=== PATIENT | female | born 1980 | race Two or more races ===

== ENCOUNTER 2024-08-16 08:33 | Inpatient (IN) | payer MEDICAID, SELFPAY ==
[2024-08-16] VITALS (7 sets, daily range): BP systolic 113–139; BP diastolic 87–100; PULSE 82–107; RESP 16–100; TEMP 36.4–37; O2SAT 97–100; BMI 28.1; BMI 27.3
--- NOTE | 2024-08-16 | XR_ITS ---
MRI abdomen, without contrast. MRCP Date and time of exam: August 16, 2024 1630 hours Comparison March 08, 2023 INDICATIONS: Patient reports dark-colored stools with upper abdominal pain and nausea, heavy drinking daily for the past several years, CT abdomen pelvis today thickened edematous gallbladder wall Technique: Multiple axial and coronal images of the abdomen have been obtained with the Siemens 1.5T MRI scanner. Images obtained included T1 weighted transverse images, T2-weighted transverse images, T2-weighted transverse images fat-suppressed, T2 weighted haste fat suppressed transverse images, T1 weighted images, in and out of phase images, T2-weighted coronal images, breath hold, T2 weighted haze coronal images as well as T2 weighted coronal thick slab images, MRCP. Findings: Liver nodular in contour, no definite liver masses Fluid subcapsular lobe liver, measuring up to 7 mm in thickness lateral to the right lobe liver Prominent splenomegaly, 15 cm Portosystemic collateral vessels medial to the spleen No gallstones On this study no definite gallbladder wall edema or cholecystitis Normal common hepatic common bile duct Pancreas is not enlarged no peripancreatic edema, no dilated pancreatic duct No hydronephrosis Solid mass lower pole left kidney, 29 mm IMPRESSION: Cirrhosis Mild fluid subcapsular and below the right over the liver Prominent splenomegaly Portosystemic collateral vessels medial to the spleen Negative for cholecystitis Normal common hepatic common bile duct. Negative for pancreatitis Recommend MRI abdomen kidneys follow-up post intravenous contrast to confirm 29 mm solid mass lower pole left kidney
--- NOTE | 2024-08-16 09:24 | XR_ITS ---
Examination: CTA abdomen, with intravenous contrast. CTA pelvis, with intravenous contrast. 2-D sagittal and coronal reconstructions. 3-D reconstructions. Date and time of exam: August 16, 2024 1211 hours Comparison January 07, 2024 INDICATIONS: Rectal bleeding epigastric pain upper abdominal pain one week, history tumor removal left kidney 2022 CTDI vol (mgy) 12.4 DLP (MGycm) 568 Technique: Multiple CTA images, 2.0 mm slice thickness, obtained abdomen, pelvis, with the high-resolution 64 slice scanner. 100 cc Isovue-370 is administered intravenously. Sagittal and coronal 2-D reconstructions are obtained. 3-D reconstructions, angiographic images are obtained. 3-D postprocessing, including vascular maximum intensity projections. Low dose protocols were performed. One or more of the following dose reduction techniques were used; automated exposure control, adjustment of the mA and/or KV according to patient size, use of iterative reconstruction technique. Findings: Lenticular parenchymal disease in the right lower lobe again noted Mild enlargement cardiac contour Cirrhosis, liver markedly irregular in contour and replaced by multiple tiny low-density lesions Prominent splenomegaly Portosystemic collateral vessels medial to the spleen No pancreatic mass Gallbladder wall appears thickened and edematous Normal adrenal glands No renal or ureteral calculi, no hydronephrosis Fluid distended small bowel loops Normal appendix No diverticulitis No bowel obstruction No pelvic mass Bladder intact IMPRESSION: Acute acalculous cholecystitis, consider MRCP follow-up Cirrhosis, liver is replaced by multiple tiny low-density lesions, recommend MRI abdomen liver follow-up pre and postcontrast to exclude numerous hepatic lesions No abnormal contrast extravasation in the gastrointestinal tract Prominent splenomegaly Portosystemic collateral vessels medial to the spleen Normal appendix Small bowel ileus versus hepatic enteropathy
--- NOTE | 2024-08-16 09:24 | XR_ITS ---
Examination: Abdomen sonogram, Limited Date and time of exam: August 16, 2024 1031 hours INDICATIONS: Epigastric pain and rectal bleeding beginning 4 days ago Technique: Real-time alcocer scale transabdominal sonographic images of the upper abdomen obtained. Findings: Negative for gallstones Gallbladder wall is thickened 0.44 cm no edema Common bile duct 0.3 cm no stones Pancreatic head 2.8 cm Liver 15.4 cm nodular contour fatty infiltration no focal liver lesions Normal hepatopedal portal venous flow Patent IVC IMPRESSION: Negative for cholelithiasis Gallbladder wall is thickened, consider MRCP or HIDA scan follow-up to exclude cholecystitis Suspect primary hepatocellular disease
--- NOTE | 2024-08-16 09:28 | PD.EDABDPN ---
ED Abdominal Pain RME/HPI General Chief Complaint: Abdominal Pain Stated complaint: RECTAL BLEEDING Time seen by provider: 08/16/24 09:16 Arrival date/time: 08/16/24 08:33 RME / HPI RME / HPI narrative: This section includes all my notes and documentations, including HPI, PE, and ED course. Issac Mondragon MD HPI: 43-year-old female here concerned about GI bleeding. She reports several days of dark and maroon-colored stools. With upper abdominal pain and nausea. She reports heavy drinking daily for the past several years. Last drink several days ago. No fever or chills. No chest pain or shortness of breath. No other complaints. ROS: All negative except as documented in HPI. Physical Exam: General: Alert and oriented. Tremors noted. Appearance of malaise noted. Eyes: Conjunctivae and lids clear. EOMI. PERRL. ENT: No nasal congestion. Neck: Supple. No JVD. Heart: RRR. Lungs: No respiratory distress. Good air movement. No rhonchi, wheezing, rales. Chest: No tenderness. Abdomen: Soft with upper quadrant tenderness. Normal bowel sounds. No distension. No rebound or guarding. Back: No CVA tenderness. Legs: No clubbing, cyanosis, edema. Skin: Warm and dry. Neuro: Alert and oriented X 3. Cranial Nerves II-XII grossly intact. No peripheral motor deficits. I reviewed all diagnostic test results. My review of the GB ultrasound report is thickened gallbladder. My review of the CT report is cholecystitis and cirrhosis. Blood tests and urine tests remarkable for WBC 2.7, Hgb 6.8, Plt 58, K 3.2, Mg 1.3. At this point, diagnoses include: Acute GI bleeding, Severe anemia, Alcohol withdrawal, Hypokalemia, Hypomagnesemia, Cholecystitis, Cirrhosis of liver, Thrombocytopenia. Treatment here included IV fluid and thiamine and Ativan and KCl and MgSO4 2 gram IV and Zosyn and blood transfusion. No significant improvement noted subjectively and objectively. I discussed the case with our GI and our hospitalist. About the presentation and exam and diagnostics and treatments here. And need of further care in the hospital. Will accept the patient. Issac Mondragon MD Related Data Home Medications ?Medication ?Instructions ?Recorded ?Confirmed folic acid 1 mg tablet 1 mg PO BID 12/24/23 01/04/24 lisinopril 20 mg tablet 20 mg PO QDAY 12/24/23 01/04/24 thiamine HCl (vitamin B1) 100 mg 100 mg PO BID 12/24/23 01/04/24 tablet (Vitamin B-1) Previous Rx's ?Medication ?Instructions ?Recorded cyclobenzaprine 5 mg tablet 5 mg PO TID PRN Muscle Spasms #30 12/27/23 tabs ferrous gluconate 324 mg (38 mg 324 mg PO QDAY #30 tabs 12/27/23 iron) tablet lidocaine 5 % topical patch 1 patch top QDAY PRN LOCALIZED 12/27/23 PAIN #7 ea pantoprazole 40 mg tablet,delayed 40 mg PO QDAY #30 tabs 12/27/23 release (Protonix) propranolol 10 mg tablet 10 mg PO BID #60 tabs 12/27/23 Allergies Allergy/AdvReac Type Severity Reaction Status Date / Time amoxicillin Allergy Severe Hives Verified 01/10/24 20:01 Penicillins Allergy Severe Hives Verified 01/10/24 20:01 Course Quality Measures none Orders Category Date Time Status Admit to Inpatient Status Routine Admission 08/16/24 14:50 Active Patient Condition Routine Admission 08/16/24 14:50 Ordered Bleeding Precautions [facility] Care 08/16/24 15:22 Active COVID-19 Screening Questionnaire NOW Care 08/16/24 13:[address] Screening NOW Care 08/16/24 09:25 Active Decision to Admit X1 Care 08/16/24 13:20 Active MRI Screening NOW Care 08/16/24 14:59 Active Notify provider NEEDED Care 08/16/24 14:50 Active Post Transfusion H&H PRN Care 08/16/24 15:22 Active Saline [Insert IV] NOW Care 08/16/24 09:21 Active Sequential Compression Device QSHIFT Care 08/16/24 14:55 Active Transfuse,blood/blood products NOW Care 08/16/24 11:00 Active Consult to Gastroenterology Stat Cons 08/16/24 13:18 Ordered Diet Clear Liquid Diet 08/16/[address] angio abdomen pelvis Stat Exams 08/16/24 09:24 Completed MR MRCP Urgent Exams 08/16/24 Ordered US gall bladder Stat Exams 08/16/24 09:24 Completed Alcohol, Blood Medical Stat Lab 08/16/24 10:15 Completed Ammonia Urgent Lab 08/16/24 14:59 Ordered Amylase Stat Lab 08/16/24 10:15 Completed CBC AM DRAW Lab 08/17/24 05:00 Ordered CBC AM DRAW Lab 08/18/24 05:00 Ordered CBC AM DRAW Lab 08/19/24 05:00 Ordered CBC Stat Lab 08/16/24 10:15 Completed CMP [Comprehensive Metabolic Panel] Stat Lab 08/16/24 10:15 Completed Comprehensive Metabolic Panel AM DRAW Lab 08/17/24 05:00 Ordered Comprehensive Metabolic Panel AM DRAW Lab 08/18/24 05:00 Ordered Comprehensive Metabolic Panel AM DRAW Lab 08/19/24 05:00 Ordered Drug Screen,Urine Stat Lab 08/16/24 09:50 Completed HCG,Qualitative Serum Stat Lab 08/16/24 10:15 Completed Lipase Stat Lab 08/16/24 10:15 Completed Magnesium AM DRAW Lab 08/17/24 05:00 Ordered Magnesium AM DRAW Lab 08/18/24 05:00 Ordered Magnesium AM DRAW Lab 08/19/24 05:00 Ordered Magnesium Stat Lab 08/16/24 10:15 Completed PT [Prothrombin Time with INR] Stat Lab 08/16/24 10:15 Completed PTT [Partial Thromboplastin Time] Stat Lab 08/16/24 10:15 Completed Partial Thromboplastin Time AM DRAW Lab 08/17/24 05:00 Ordered Path Review Blood Smear Stat Lab 08/16/24 10:15 Completed Phosphorous AM DRAW Lab 08/17/24 05:00 Ordered Phosphorous AM DRAW Lab 08/18/24 05:00 Ordered Phosphorous AM DRAW Lab 08/19/24 05:00 Ordered Prothrombin Time with INR AM DRAW Lab 08/17/24 05:00 Ordered Red Blood Cells Stat Lab 08/16/24 10:15 Results Type and Screen Stat Lab 08/16/24 10:15 Results UA [Urinalysis] Stat Lab 08/16/24 09:50 Completed Acetaminophen Tab [Tylenol Tab] Med 08/16/24 14:49 Active 650 mg PO Q6H PRN CIPROFLOXACIN/D5w 400 MG IVPB [Cipro Ivpb] Med 08/16/24 15:30 Active 400 mg in 200 ml IV DAILY DiphenhydrAMINE INJ [Benadryl Inj] Med 08/16/24 11:59 Discontinued 25 mg IVP X1 ONE Famotidine Inj [Pepcid Inj] Med 08/16/24 09:23 Discontinued 20 mg IVP X1 ONE Folic Acid Med 08/16/24 15:00 Active 1 mg PO BID HYDROcodone*/APAP 5/325 [[place] 5/325] Med 08/16/24 14:55 Active 1 tab PO Q4HR PRN KCL 10% Liq UDC 15 ML Med 08/16/24 10:59 Discontinued 40 meq PO X1 ONE LORazepam [Ativan Inj] Med 08/16/24 15:00 Active 1 mg IV Q2HR PRN LORazepam [Ativan Inj] Med 08/16/24 15:00 Active 2 mg IV Q2HR PRN LORazepam [Ativan Inj] Med 08/16/24 09:22 Discontinued 2 mg IVP X1 ONE LORazepam [Ativan] Med 08/16/24 15:00 Active 0.5 mg PO Q4HR PRN LORazepam [Ativan] Med 08/16/24 15:00 Active 1 mg PO Q4HR PRN LORazepam [Ativan] Med 08/16/24 15:00 Active 2 mg PO Q4HR PRN Magnesium Sulfate 2 GM Ivpb [Magnesium Sulfate Ivpb] Med 08/16/24 10:59 Discontinued 2 gm in 50 ml IV X1 Magnesium Sulfate 4 GM Ivpb [Magnesium Sulfate Ivpb] Med 08/16/24 15:19 Active 4 gm in 50 ml IV X1 MethylPREDNISolone. [SoluMEDROL Inj] Med 08/16/24 11:59 Discontinued 40 mg IVP X1 ONE Morphine Inj Med 08/16/24 14:55 Active 2 mg IVP Q4HR PRN NA [place]RISTIAN[place]/NAHCO3/TERRY/PEG (Golytely) [Golytely] Med 08/16/24 14:55 Discontinued 4,000 ml PO X1 ONE Octreotide Acet Inj [SandoSTATIN Inj] Med 08/16/24 10:59 Discontinued 50 mcg IV X1 ONE Ondansetron Inj [Zofran Inj] Med 08/16/24 14:55 Active 4 mg IV Q6H PRN Ondansetron Inj [Zofran Inj] Med 08/16/24 09:22 Discontinued 4 mg IV X1 ONE Pantoprazole Inj [Protonix Inj] Med 08/16/24 22:00 Active 40 mg IVP Q12HR Pantoprazole Inj [Protonix Inj] Med 08/16/24 09:23 Discontinued 80 mg IV X1 ONE Piper/Tazo Inj [Zosyn Inj] 3.375 gm Med 08/16/24 13:21 Discontinued Sodium Chloride 0.9% (P) [Ns 0.9% (P)] 50 ml IV X1 Senna [Senokot] Med 08/16/24 14:55 Active 1 tab PO BID PRN Sodium Chloride 0.9% 1000 ml [Ns] 1,000 ml Med 08/16/24 09:26 Discontinued IV 999 mls/hr Sodium Chloride 0.9% [Ns] 100 ml Med 08/16/24 11:15 Active Octreotide Acet Inj [SandoSTATIN Inj] 1,000 mcg IV 50 mcg/hr Sodium Chloride 0.9% [Ns] 100 ml Med 08/17/24 07:15 Pending Octreotide Acet Inj [SandoSTATIN Inj] 1,000 mcg IV 50 mcg/hr Thiamine Inj [Vitamin B-1 Inj] Med 08/16/24 09:22 Discontinued 100 mg IVP X1 ONE Thiamine [Vitamin B-1] Med 08/16/24 15:00 Active 100 mg PO BID cefTRIAXone/D5w 1gm IV premix [Rocephin/D5w 1gm IV Med 08/17/24 21:00 Active premix] 50 ml IV HS cefTRIAXone/D5w 1gm IV premix [Rocephin/D5w 1gm IV Med 08/17/24 09:00 Discontinued premix] 50 ml IV QDAY metroNIDAZOLE/NS 500 MG IVPB [Flagyl 500 mg IV] Med 08/16/24 14:10 Discontinued 500 mg in 100 ml IV Q8HR metroNIDAZOLE/NS 500 MG IVPB [Flagyl 500 mg IV] Med 08/16/24 21:00 Active 500 mg in 100 ml IV Q8HR Code Status Routine Oth 08/16/24 14:49 Ordered Oxygen Delivery PRN RT 08/16/24 14:49 Active Vital Signs Vital signs: Vital Signs Temperature 98.6 F 08/16/24 08:59 Pulse Rate 107 H 08/16/24 08:59 Respiratory Rate 16 08/16/24 08:59 Blood Pressure 123/88 H 08/16/24 08:59 Pulse Oximetry (%) 100 08/16/24 08:59 Oxygen Delivery Method Room Air 08/16/24 08:59 Abdominal Pain MDM Patient data External records reviewed:: [facility] previous records Clinical information provided by:: patient Social determinants that could affect healthcare access:: alcohol use Patient has the following chronic illnesses:: Alcohol abuse and cirrhosis How is presenting disease/condition affected by chronic disease/condition?: exacerbated by Evaluation data The following diagnostics were reviewed and interpreted by me:: lab results and radiology exam(s) Lab and/or radiology exams considered but not ordered:: None Interpretation Summary: Acute GI bleeding, Severe anemia, Alcohol withdrawal, Hypokalemia, Hypomagnesemia, Cholecystitis, Cirrhosis of liver, Thrombocytopenia Medications / Prescriptions Medications or Prescriptions considered but not ordered:: None Medication administrations:: Medication Administration History Acetaminophen (Acetaminophen 325 Mg Tablet) 650 mg PO Q6H PRN PRN Reason: Fever >100.4 or pain 1-3 Stop: 09/15/24 14:48 Hydrocodone Bitart/Acetaminophen (Hydrocodone/Apap 5/325 Tablet) 1 tab PO Q4HR PRN PRN Reason: PAIN SCALE 4-10(Mod-Sev Stop: 08/21/24 14:54 Folic Acid (Folic Acid 1 Mg Tablet) 1 mg PO BID [place] Stop: 08/21/24 14:59 Octreotide Acetate 1,000 mcg/ (Sodium Chloride) 102 mls @ 5.1 mls/hr IV .Q20H [place]; Protocol Stop: 08/21/24 07:14 Octreotide Acetate 1,000 mcg/ (Sodium Chloride) 102 mls @ 5.1 mls/hr IV .Q20H ONE; Protocol Stop: 08/17/24 07:14 Last Admin: 08/16/24 11:43 Dose: 50 mcg/hr, 5.1 mls/hr Documented By: AM Metronidazole (Flagyl 500 Mg Iv) 500 mg in 100 mls @ 200 mls/hr IV Q8HR [place] Stop: 08/23/24 20:59 Ceftriaxone Sodium/Dextrose (Rocephin/D5w 1gm Iv Premix) 50 mls @ 100 mls/hr IV HS [place] Stop: 08/24/24 20:59 Ciprofloxacin/Dextrose (Cipro Ivpb) 400 mg in 200 mls @ 200 mls/hr IV DAILY [place] Stop: 08/23/24 15:29 Magnesium Sulfate (Magnesium Sulfate Ivpb) 4 gm in 50 mls @ 12.5 mls/hr IV X1 ONE Stop: 08/16/24 19:18 Lorazepam (Lorazepam 0.5 Mg Tablet) 0.5 mg PO Q4HR PRN PRN Reason: CIWA Score 2-6 Stop: 08/21/24 14:59 Lorazepam (Lorazepam 0.5 Mg Tablet) 1 mg PO Q4HR PRN PRN Reason: CIWA SCORE 7-11 Stop: 08/21/24 14:59 Lorazepam (Lorazepam 2 Mg/Ml Vial) 1 mg IV Q2HR PRN PRN Reason: CIWA SCORE 16-19 Stop: 08/21/24 14:59 Lorazepam (Lorazepam 2 Mg/Ml Vial) 2 mg IV Q2HR PRN PRN Reason: CIWA SCORE 20-25 Stop: 08/21/24 14:59 Lorazepam (Lorazepam 0.5 Mg Tablet) 2 mg PO Q4HR PRN PRN Reason: CIWA SCORE 12-15 Stop: 08/21/24 14:59 Morphine Sulfate (Morphine Sulf Inj 10 Mg/Ml Vial) 2 mg IVP Q4HR PRN PRN Reason: Breakthrough Pain Stop: 08/21/24 14:54 Ondansetron HCl (Ondansetron Inj 2 Mg/Ml Inj 2 Ml) 4 mg IV Q6H PRN; Protocol PRN Reason: NAUSEA OR VOMITING Stop: 09/15/24 14:54 Pantoprazole Sodium (Pantoprazole Inj 40 Mg Vial) 40 mg IVP Q12HR [facility] Stop: 09/15/24 21:59 Sennosides (Senna Tablet) 1 tab PO BID PRN; Protocol PRN Reason: CONSTIPATION Stop: 09/15/24 14:54 Thiamine HCl (Thiamine 100 Mg Tablet) 100 mg PO BID [facility] Stop: 08/21/24 14:59 Discontinued Medications Diphenhydramine HCl (Diphenhydramine Inj 50 Mg/Ml Vial) 25 mg IVP X1 ONE Stop: 08/16/24 12:00 Famotidine (Famotidine Inj 10 Mg/Ml Vial 2 Ml) 20 mg IVP X1 ONE Stop: 08/16/24 09:24 Last Admin: 08/16/24 09:57 Dose: 20 mg Documented By: AM Sodium Chloride (Ns) 1,000 mls @ 999 mls/hr IV .Q1H1M ONE Stop: 08/16/24 10:26 Last Admin: 08/16/24 09:49 Dose: 999 mls/hr Documented By: AM Magnesium Sulfate (Magnesium Sulfate Ivpb) 2 gm in 50 mls @ 25 mls/hr IV X1 ONE Stop: 08/16/24 12:58 Last Admin: 08/16/24 11:42 Dose: 25 mls/hr Documented By: AM Piperacillin Sod/Tazobactam (Sod 3.375 gm/ Sodium Chloride) 50 mls @ 100 mls/hr IV X1 ONE Stop: 08/16/24 13:50 Ceftriaxone Sodium/Dextrose (Rocephin/D5w 1gm Iv Premix) 50 mls @ 100 mls/hr IV QDAY [place] Stop: 08/24/24 08:59 Metronidazole (Flagyl 500 Mg Iv) 500 mg in 100 mls @ 200 mls/hr IV Q8HR [place] Stop: 08/23/24 14:09 Lorazepam (Lorazepam 2 Mg/Ml Vial) 2 mg IVP X1 ONE Stop: 08/16/24 09:23 Last Admin: 08/16/24 09:57 Dose: 2 mg Documented By: AM Methylprednisolone Sodium Succinate (Methylprednisolone Sod Succ 40 Mg Vial) 40 mg IVP X1 ONE Stop: 08/16/24 12:00 Octreotide Acetate (Octreotide Acet Inj 50 Mcg/Ml Vial) 50 mcg IV X1 ONE Stop: 08/16/24 11:00 Last Admin: 08/16/24 11:42 Dose: 50 mcg Documented By: AM Ondansetron HCl (Ondansetron Inj 2 Mg/Ml Inj 2 Ml) 4 mg IV X1 ONE; Protocol Stop: 08/16/24 09:23 Last Admin: 08/16/24 09:56 Dose: 4 mg Documented By: AM Pantoprazole Sodium (Pantoprazole Inj 40 Mg Vial) 80 mg IV X1 ONE Stop: 08/16/24 09:24 Last Admin: 08/16/24 09:55 Dose: 80 mg Documented By: AM Polyethylene Glycol/Electrolytes (Na [place]/Nahco3/Terry/Peg (Golytely) 4,000 Ml Btl) 4,000 ml PO X1 ONE Stop: 08/16/24 14:56 Potassium Chloride (Potassium Chloride 10% 20 Meq/15 Ml Udc) 40 meq PO X1 ONE Stop: 08/16/24 11:00 Last Admin: 08/16/24 11:40 Dose: 40 meq Documented By: AM Thiamine HCl (Thiamine Inj 100 Mg/Ml Vial 2 Ml) 100 mg IVP X1 ONE Stop: 08/16/24 09:23 Last Admin: 08/16/24 09:57 Dose: 100 mg Documented By: AM IV fluid and Ativan and thiamine and Zosyn and KCl and MgSO4 2 gram IV and blood transfusion Consultations Consultation(s) initiated? (list below): Yes Consultation #1 (Physician, Specialty, Details): GI (Dr. Mcdonald) Diagnosis Differential diagnosis abdominal pain: acute appendicitis, calculus of kidney, constipation, diverticulitis, gastroenteritis, pancreatitis and small bowel obstruction Most likely diagnosis given after review of the tests above:: Acute GI bleeding, Severe anemia, Alcohol withdrawal, Hypokalemia, Hypomagnesemia, Cholecystitis, Cirrhosis of liver, Thrombocytopenia Admission Indicated Admission indicated?: indicated Explain why admission is indicated or not indicated:: Acute GI bleeding, Severe anemia, Alcohol withdrawal, Hypokalemia, Hypomagnesemia, Cholecystitis, Cirrhosis of liver, Thrombocytopenia Admission Request Was there a request for admission?: Yes Admission Attestation Admission request attestation: Discussed case with Hospitalist service regarding admission. Discussed patients ED course, exam findings, labs, and radiology results. The Hospitalist [agrees,declines] to accept the patient for admission. Disposition Plan Disposition Plan: Admit Critical Care Time Critical Care Time Critical Care Time: Yes Total Critical Care Time (min.): 43 Attestation: Due to a high probability of clinically significant, life threatening deterioration, the patient required my highest level of preparedness to intervene emergently and I personally spent this critical care time directly and personally managing the patient. This critical care time included obtaining a history; examining the patient; ordering and review of studies; arranging urgent treatment with development of a management plan; evaluation of patient's response to treatment; frequent reassessment; and discussions with family and other providers. It was exclusive of separately billable procedures and treating other patients and teaching time. Issac Mondragon MD Discharge Plan Plan Patient Disposition: Admit Acute Care w/in Hospital Prescriptions/Referrals Prescriptions/Med Rec: No Action folic acid 1 mg Tablet 1 mg PO BID thiamine HCl (vitamin B1) [Vitamin B-1] 100 mg Tablet 100 mg PO BID lisinopril 20 mg Tablet 20 mg PO QDAY lidocaine 5 % Adhesive Patch,Medicated 1 patch top QDAY PRN (Reason: LOCALIZED PAIN) Qty: 7 0RF cyclobenzaprine 5 mg Tablet 5 mg PO TID PRN (Reason: Muscle Spasms) Qty: 30 0RF pantoprazole [Protonix] 40 mg tablet,delayed release (DR/EC) 40 mg PO QDAY Qty: 30 0RF ferrous gluconate 324 mg (38 mg iron) tablet 324 mg PO QDAY Qty: 30 0RF propranolol 10 mg tablet 10 mg PO BID Qty: 60 0RF Referrals: No Primary/Family,Physician [Primary Care Provider] - In 1 week Problem List Clinical Impression: Acute GI bleeding, Severe anemia, Alcohol withdrawal, Hypokalemia, Hypomagnesemia, Cholecystitis, Cirrhosis of liver, Thrombocytopenia Patient/Caregiver Discharge Instructions Print Language: Omani Stand Alone Forms: Christina Award Info., Patient Portal Info Letter
[2024-08-16] MEDS: SODIUM CHLORIDE 0.9% 1000 ML 1,000 ML 999 ML IV (09:49)
[2024-08-16] MEDS: PANTOPRAZOLE INJ 40 MG VIAL 80 MG IV (09:55)
[2024-08-16] MEDS: ONDANSETRON INJ 2 MG/ML INJ 2 ML 4 MG IV (09:56)
[2024-08-16] MEDS: FAMOTIDINE INJ 10 MG/ML VIAL 2 ML 20 MG IVP (09:57)
[2024-08-16] MEDS: THIAMINE INJ 100 MG/ML VIAL 2 ML IVP (09:57)
[2024-08-16] MEDS: LORazepam 2 MG/ML VIAL IVP (09:57)
[2024-08-16 10:14] LABS: Collection Type, Urine Clean Catch
[2024-08-16 10:29] LABS: Basophils % (Auto) 1 % (0-2.5); Eosinophils # (Auto) 0.1 Thou/mm3 (0.0-0.5); Eosinophils % (Auto) 2 % (0-10); Hematocrit 22.6 % (36.0-46.0); Immature Granulocytes % (Auto) 0 % (0-0); Immature Granulocytes Auto 0.01 Thou/mm3 (0.00-0.00); Lymphocytes # (Auto) 0.5 Thou/mm3 (1.0-4.8); Lymphocytes % (Auto) 19 % (10-50); Mean Corpuscular HGB Conc 30.1 g/dl (31.0-37.0); Mean Corpuscular Hemoglobin 20.9 pg (25.0-35.0); Mean Corpuscular Volume 70 fL (80-100); Monocytes # (Auto) 0.3 Thou/mm3 (0.0-0.8); Monocytes % (Auto) 13 % (0-12); Neutrophils # (Auto) 1.7 Thou/mm3 (1.8-7.7); Neutrophils % (Auto) 65 % (37-80); Nucleated Red Blood Cell % 0 /100 WBC (0); RDW Standard Deviation 48.5 fL (36.4-46.3); Red Blood Count 3.25 Miln/mm3 (4.00-5.20)
[2024-08-16 10:31] LABS: Amorphous Crystals,Urine Present (Absent); Bacteria,Urine Rare; Bilirubin,Urine Negative (Negative); Blood,Urine 3+ (Negative); Color,Urine Yellow (Lt Yel-Yel); Glucose, Urine Negative (Negative); Ketones,Urine Negative (Negative); Leukocyte Esterase,Urine Negative (Negative); Nitrite,Urine Negative (Negative); Protein,Urine 1+ (Neg - Trace); RBC,Urine 5 /hpf (0-3); Specific Gravity,Urine 1.023 (1.001-1.035); Squamous Epithelial Cell,Urine 27 /hpf (0-5); WBC,Urine 2 /hpf (0-5)
[2024-08-16 10:39] LABS: Clarity,Urine Hazy (Clear/Hazy)
[2024-08-16 10:40] LABS: INR 1.3 (0.9-1.3); Partial Thromboplastin Time 28.3 Seconds (22.0-36.0)
[2024-08-16 10:50] LABS: Alanine Aminotransferase 75 U/L (10-49); Albumin, Serum 3.8 gm/dL (3.5-5.0); Albumin/Globulin Ratio 1.4 (1.2-2.2); Alcohol, Blood Medical < 3.0 mg/dL (0-10.0); Alkaline Phosphatase 88 U/L (46-116); Amylase 90 U/L (30-118); Anion Gap 7 (7-16); Aspartate Amino Transferase 94 U/L (0-34); BUN/Creatinine Ratio 14 Ratio (12-20); Bilirubin,Total 1.1 mg/dL (0.3-1.2); Blood Urea Nitrogen 7 mg/dL (9-23); Calcium 8.1 mg/dL (8.3-10.6); Calcium (Corrected) 8.3 mg/dL (8.5-10.1); Carbon Dioxide 22.3 mMol/L (20.0-31.0); Chloride 108 mMol/L (98-107); Creatinine (Component) 0.5 mg/dL (0.6-1.3); Estimated Creatinine Clearance 144.8 mL/min (>60); Globulin 2.7 gm/dL (2.3-3.5); Glucose 92 mg/dL (74-106); Lipase 30 U/L (12-53); Magnesium 1.3 mg/dL (1.6-2.6); Osmolality,Calculated 271 (275-295); Potassium 3.2 mMol/L (3.4-5.1); Sodium 137 mMol/L (136-145); Total Protein 6.5 gm/dL (5.7-8.2); eGFR > 60 See Note
[2024-08-16 10:51] LABS: Amphetamine/Methamp Scrn,U Negative (Negative); Barbiturate Screen,Urine Negative (Negative); Benzodiazepines Screen,Urine Negative (Negative); Benzoylecgonine Screen, Ur Negative (Negative); Fentanyl Screen,Urine Negative (Negative); Opiate Screen,Urine Negative (Negative); THC Screen,Urine Positive (Negative)
[2024-08-16 10:56] LABS: Hemoglobin 6.8 g/dL (12.0-16.0); Platelet Count 58 Thou/mm3 (140-440); White Blood Count 2.7 Thou/mm3 (3.6-11.0)
[2024-08-16 10:57] LABS: HCG,Qualitative Serum Negative
[2024-08-16 11:19] LABS: Path Review Blood Smear Sent to Pathologist; Slide Review Platelets confirmed
--- NOTE | 2024-08-16 11:36 | PC.NURSE ---
Pt back from US
[2024-08-16] MEDS: POTASSIUM CHLORIDE 10% 20 MEQ/15 ML UDC 40 MEQ PO (11:40)
[2024-08-16] MEDS: OCTREOTIDE ACET INJ 50 mCg/ML VIAL IV (11:42)
[2024-08-16] MEDS: Magnesium Sulfate 2 GM Ivpb 2 GM/50 ML BAG IV (11:42)
[2024-08-16] MEDS: OCTREOTIDE ACET INJ 1,000 MCG in SODIUM CHLORIDE 0.9% 100 ML 5.1 MCG IV (11:43)
--- NOTE | 2024-08-16 12:04 | PC.NURSE ---
Pt off to ct
--- NOTE | 2024-08-16 13:41 | PC.CC ---
Patient is a 43 year-old female who presents to the hospital for rectal bleeding. Mary RUTLEDGE made [id number] contact with patient. ASW introduced self, role, and reason for visit. Patient appeared alert and oriented to self, location, and situation. Patient was pleasant and engaged in initial assessment. Patient confirmed information on her demographics and reports she lives with her significant other. Patient reports should something happen her next of kin is Amador Carlosz . Per patient, prior to being admitted she was able to ambulate independently and complete her own ADLs. Patient receives primary care with [facility] in [place], [place] for prescription medications the patient uses [facility] on [address]. Upon discharge patient plans on returning back home. Social servies to remain available for any discharge needs.
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
[2024-08-16] MEDS: PIPER/TAZO INJ 3.375 GM in SODIUM CHLORIDE 0.9% (P) 50 ML IV (15:32)
[2024-08-16] MEDS: FOLIC ACID 1 MG TABLET PO ×2 (15:32→21:31)
[2024-08-16] MEDS: THIAMINE 100 MG TABLET PO ×2 (15:32→21:32)
[2024-08-16 15:45] LABS: Ammonia 12 uMol/L (11-32)
--- NOTE | 2024-08-16 16:05 | PC.NURSE ---
Dr. Soto called because blood bank is still working on getting pt's blood and go lytely was ordered. Per Dr. Soto, Start patient on go lytely. Pt given go lytely but does not want to start fluid until she is in a room.
--- NOTE | 2024-08-16 16:09 | PC.NURSE ---
Blood bank contacted . Blood bank states blood may need to be obtained from another facility due to pt having 3 antibodies and a cold antigen. Dr. Brittany rendon.
[2024-08-16] MEDS: NA SU/NAHCO3/KC/PEG (Golytely) 4,000 ML BTL 4000 ML PO (16:26)
--- NOTE | 2024-08-16 16:26 | PC.NURSE ---
Pt waiting to go to room to starte celine
[2024-08-16] MEDS: LORazepam 0.5 MG TABLET PO (18:00)
[2024-08-16] MEDS: Magnesium Sulfate 4 GM Ivpb 4 GM/50 ML BAG IV (18:00)
[2024-08-16] MEDS: CALCIUM CARBONATE 600 MG TABLET PO (18:00)
[2024-08-16 18:37] LABS: Hematocrit 25.2 % (36.0-46.0)
[2024-08-16 18:40] LABS: Hemoglobin 7.3 g/dL (12.0-16.0)
--- NOTE | 2024-08-16 20:22 | PD.IMCONS ---
HPI Data of Consult Requesting Physician: Maynor Villar DO Primary Care Provider: Physician No Primary/Family Consult Narrative Reason for consult: GI hemorrhage History of present illness: 43 years of female consulted by the ER physician for 4-day history of dark maroon-colored stools Patient does have a known history of alcohol induced liver disease with cirrhosis thrombocytopenia Admitting hemoglobin hematocrit 6.8 and 22.6 with a platelet count of 58,000 and a pro time INR 1.3 CT abdomen pelvis showed acute acalculous cholecystitis cirrhosis of the liver and portosystemic collaterals MRCP MRI of the abdomen showed nodular liver but no real masses and normal CBD I did evaluate the patient on 12/24/2023 With a GI bleed where on 12/25/2023 she underwent upper endoscopy which showed 1+ esophageal varices and gastritis On 12/26/2023 colonoscopy showed 1+ internal hemorrhoids otherwise normal colonoscopy to cecum Patient does have a history of essential hypertension and partial left nephrectomy in 2022 for renal cell carcinoma of the left kidney at [facility] cc:: cc: Maynor Villar DO Review of Systems Review of Systems Systems Reviewed: All systems reviewed, normal except as documented Past Medical History Surgical History OTHER SURGICAL HX: As in the history of present illness Meds Home Medications and Allergies Home Medications ?Medication ?Instructions ?Recorded ?Confirmed ?Type No Known Home Medications 08/16/24 08/16/24 History Allergies Allergy/AdvReac Type Severity Reaction Status Date / Time amoxicillin Allergy Severe Hives Verified 01/10/24 20:01 Penicillins Allergy Severe Hives Verified 01/10/24 20:01 Exam Vital Signs Temp Pulse Resp BP Pulse Ox O2 Del Method 98.2 F 94 16 131/100 H 99 Room Air 08/16/24 17:47 08/16/24 17:47 08/16/24 17:47 08/16/24 17:47 08/16/24 17:47 08/16/24 17:47 Constitutional Comments: Chronically ill-appearing Routine Respiratory Exam Comments: Normal to auscultation Routine Abdominal Exam Comments: Positive bowel sounds Results Labs 08/16/24 18:00 08/16/24 10:15 Labs: Short CBC 08/16/24 08/16/24 Range/Units 10:15 18:00 WBC 2.7 L (3.6-11.0) Thou/mm3 Hgb 6.8 L* 7.3 L (12.0-16.0) g/dL Hct 22.6 L 25.2 L (36.0-46.0) % Plt Count 58 L (140-440) Thou/mm3 BMP 08/16/24 10:15 Sodium 137 Potassium 3.2 L Chloride 108 H Carbon Dioxide 22.3 BUN 7 L Creatinine 0.5 L Glucose 92 Calcium 8.1 L Liver Function 08/16/24 Range/Units 10:15 Total Bilirubin 1.1 (0.3-1.2) mg/dL AST 94 H (0-34) U/L ALT 75 H (10-49) U/L Alkaline Phosphatase 88 (46-116) U/L Albumin 3.8 (3.5-5.0) gm/dL Urine 08/16/24 Range/Units 09:50 Urine Color Yellow (Lt Yel-Yel) Urine Clarity Hazy (Clear/Hazy) Urine pH 8.0 H (5.0-7.0) Ur Specific [place] 1.023 (1.001-1.035) Urine Protein 1+ A (Neg - Trace) Urine Glucose (UA) Negative (Negative) Assessment and Plan Additional Assessment & Plan Additional Plan: # Gastrointestinal hemorrhage in the setting of cirrhotic liver disease due to alcohol with thrombocytopenia and coagulopathy Most likely upper GI bleed secondary to either hypertensive portal gastropathy with mucosal oozing of blood or esophageal variceal bleeding Plan Octreotide infusion at 50 mcg/h IV Protonix Serial CBC Consent obtained for fiberoptic esophagogastroduodenoscopy with possible therapeutic intervention possible biopsy under intravenous moderate sedation scheduled for tomorrow thank you once again for the opportunity to participate in the care of this patient
[2024-08-16] MEDS: PANTOPRAZOLE INJ 40 MG VIAL IVP (21:34)
[2024-08-16] MEDS: LORazepam 0.5 MG TABLET 1 MG PO (22:04)
[2024-08-17] VITALS (18 sets, daily range): BP systolic 102–148; BP diastolic 79–102; PULSE 70–94; RESP 12–97; TEMP 35.6–36.7; O2SAT 94–99
[2024-08-17] MEDS: LORazepam 0.5 MG TABLET PO (05:09)
[2024-08-17 06:00] LABS: Basophils % (Auto) 1 % (0-2.5); Eosinophils # (Auto) 0.1 Thou/mm3 (0.0-0.5); Eosinophils % (Auto) 3 % (0-10); Hematocrit 22.9 % (36.0-46.0); Immature Granulocytes % (Auto) 1 % (0-0); Immature Granulocytes Auto 0.02 Thou/mm3 (0.00-0.00); Lymphocytes # (Auto) 0.6 Thou/mm3 (1.0-4.8); Lymphocytes % (Auto) 21 % (10-50); Mean Corpuscular HGB Conc 29.7 g/dl (31.0-37.0); Mean Corpuscular Hemoglobin 20.8 pg (25.0-35.0); Mean Corpuscular Volume 70 fL (80-100); Monocytes # (Auto) 0.3 Thou/mm3 (0.0-0.8); Monocytes % (Auto) 13 % (0-12); Neutrophils # (Auto) 1.6 Thou/mm3 (1.8-7.7); Neutrophils % (Auto) 61 % (37-80); Nucleated Red Blood Cell % 0 /100 WBC (0); Red Blood Count 3.27 Miln/mm3 (4.00-5.20)
[2024-08-17 06:03] LABS: Platelet Count 67 Thou/mm3 (140-440)
[2024-08-17 06:04] LABS: White Blood Count 2.6 Thou/mm3 (3.6-11.0)
[2024-08-17 06:05] LABS: Hemoglobin 6.8 g/dL (12.0-16.0)
[2024-08-17 06:06] LABS: Slide Review Platelets confirmed
[2024-08-17 06:18] LABS: INR 1.3 (0.9-1.3); Partial Thromboplastin Time 28.3 Seconds (22.0-36.0); Prothrombin Time 13.8 Seconds (9.0-12.2)
[2024-08-17 06:28] LABS: Alanine Aminotransferase 127 U/L (10-49); Albumin, Serum 3.9 gm/dL (3.5-5.0); Albumin/Globulin Ratio 1.3 (1.2-2.2); Alkaline Phosphatase 85 U/L (46-116); Anion Gap 7 (7-16); Aspartate Amino Transferase 214 U/L (0-34); BUN/Creatinine Ratio 8 Ratio (12-20); Bilirubin,Total 1.1 mg/dL (0.3-1.2); Blood Urea Nitrogen < 5 mg/dL (9-23); Calcium 8.4 mg/dL (8.3-10.6); Calcium (Corrected) 8.5 mg/dL (8.5-10.1); Carbon Dioxide 26.1 mMol/L (20.0-31.0); Chloride 102 mMol/L (98-107); Creatinine (Component) 0.6 mg/dL (0.6-1.3); Estimated Creatinine Clearance 119.1 mL/min (>60); Globulin 2.9 gm/dL (2.3-3.5); Glucose 108 mg/dL (74-106); Osmolality,Calculated 268 (275-295); Phosphorous 2.8 mg/dL (2.4-5.1); Potassium 4.1 mMol/L (3.4-5.1); Sodium 135 mMol/L (136-145); Total Protein 6.8 gm/dL (5.7-8.2); eGFR > 60 See Note
[2024-08-17] MEDS: DiphenhydrAMINE INJ 50 MG/ML VIAL 25 MG IVP (06:39)
[2024-08-17] MEDS: FOLIC ACID 1 MG TABLET PO ×2 (08:28→19:45)
[2024-08-17] MEDS: THIAMINE 100 MG TABLET PO ×2 (08:28→19:45)
--- NOTE | 2024-08-17 08:28 | XR_ITS ---
Examination: MRI abdomen , with intravenous contrast. Exam date and time: August 17, 2024 1230 hours INDICATIONS: Patient reports dark-colored stools with upper abdominal pain and nausea heavy drinking in the past several years, noncontrast MRI abdomen August 16, 2024 29 mm solid mass lower pole left kidney Technique: Multiple axial, sagittal and coronal images of the abdomen have been obtained with the Siemens high-resolution 1.5 Padmini MRI scanner. Images obtained included T2 weighted fat suppressed sagittal sections, TR 3500, TE 46, T2 weighted coronal fat suppressed images, TR 3050, TE 84, T2-weighted transverse fat suppressed images, TR 30-60, TE 63, proton density transverse images, TR 4720, TE 46, and T1 weighted coronal images, TR 560, TE 13. Axial, sagittal and coronal images are obtained post intravenous injection 19 cc gadolinium. Findings: The liver on the postcontrast images demonstrates very abnormal heterogeneous uptake, irregular contour, cirrhosis pattern Splenomegaly Contrast in the gallbladder No pancreatic mass Solid mass is confirmed lower pole left kidney, 27 x 26 mm IMPRESSION: Very abnormal heterogeneous enhancement involving the cirrhotic liver, clinical correlation advised Solid mass is confirmed lower pole left kidney 27 x 26 mm
[2024-08-17] MEDS: CALCIUM CARBONATE 600 MG TABLET PO (08:29)
[2024-08-17] MEDS: PANTOPRAZOLE INJ 40 MG VIAL IVP ×2 (08:29→19:45)
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
[2024-08-17] MEDS: LORazepam 0.5 MG TABLET 1 MG PO ×2 (09:20→19:45)
[2024-08-17] MEDS: HYDROcodone/APAP 5/325 TABLET 1 TAB PO ×3 (09:20→20:04)
--- NOTE | 2024-08-17 09:26 | PC.NURSE ---
Clarified quantity of PRBCs to infuse, Per Dr Soto, infuse one unit and check H/H
--- NOTE | 2024-08-17 09:44 | PC.SS ---
Patient Michelle Davila is a 43 Year old female admitted for GI Bleed for Investigation. SS met wit patient at bedside to complete initial assessment and discuss discharge plan. Patient reports she lives at home with her life partner, Amador Bender who she reports is her surrogate decision maker [phone]. She reports she does not utilize any source of DME to assist with ambulation. Patient is able to complete all ADL's independently. Choice of pharmacy is [facility]. PCP is Richy Moss. At time of discharge patient will return home. Discharge Plan: home Next of Kin: life partner, Amador Bender
[2024-08-17] MEDS: OCTREOTIDE ACET INJ 1,000 MCG in SODIUM CHLORIDE 0.9% 100 ML 5.1 MCG IV (11:07)
[2024-08-17 12:44] LABS: Hematocrit 30.6 % (36.0-46.0); Hemoglobin 9.1 g/dL (12.0-16.0)
[2024-08-17] MEDS: LORazepam 0.5 MG TABLET 2 MG PO (13:26)
--- NOTE | 2024-08-17 17:42 | PC.NURSE ---
Received call from Ingrid from endoscopy, told to hold off on ativan as patient will be having procedure soon
--- NOTE | 2024-08-17 17:56 | PC.NURSE ---
patient to endo via paul, visibly upset. she explained that it had been a long day of uncertainty and waiting for the procedure.
--- NOTE | 2024-08-17 18:32 | SUR.PHASEI ---
pt arrived to PACU via gurney drowsy but arouses to verbal commands, breathing unlabored, VS stable, report from Christine TAYLOR
--- NOTE | 2024-08-17 19:05 | SUR.PHASEI ---
pt awake, alert, able to follow commands, breathing unlabored, VS stable, report called to Ayla TAYLOR, pt transferred to room.
--- NOTE | 2024-08-17 20:02 | PC.NURSE ---
called pharmacy regarding patient's ceftriaxone dose, if there is a reaction that may happen with the patient being allergic to amoxicillin and penicillins. Monitor patient closely when administering medication.
[2024-08-17] MEDS: cefTRIAXone/D5w 1gm IV premix 50 ML IV (20:06)
[2024-08-17] MEDS: NA SU/NAHCO3/KC/PEG (Golytely) 4,000 ML BTL 4000 ML PO (20:14)
[2024-08-18] VITALS (23 sets, daily range): BP systolic 103–140; BP diastolic 72–108; PULSE 62–88; RESP 8–97; TEMP 35.9–36.7; O2SAT 92–100; BMI 27.2
[2024-08-18] MEDS: LORazepam 0.5 MG TABLET 1 MG PO ×4 (00:29→19:45)
[2024-08-18] MEDS: HYDROcodone/APAP 5/325 TABLET 1 TAB PO ×5 (00:29→21:59)
[2024-08-18 05:53] LABS: Basophils % (Auto) 1 % (0-2.5); Eosinophils % (Auto) 1 % (0-10); Hematocrit 29.8 % (36.0-46.0); Hemoglobin 8.9 g/dL (12.0-16.0); Immature Granulocytes % (Auto) 1 % (0-0); Immature Granulocytes Auto 0.02 Thou/mm3 (0.00-0.00); Lymphocytes # (Auto) 0.7 Thou/mm3 (1.0-4.8); Lymphocytes % (Auto) 19 % (10-50); Mean Corpuscular HGB Conc 29.9 g/dl (31.0-37.0); Mean Corpuscular Hemoglobin 21.7 pg (25.0-35.0); Mean Corpuscular Volume 73 fL (80-100); Monocytes # (Auto) 0.5 Thou/mm3 (0.0-0.8); Monocytes % (Auto) 13 % (0-12); Neutrophils # (Auto) 2.4 Thou/mm3 (1.8-7.7); Neutrophils % (Auto) 67 % (37-80); Nucleated Red Blood Cell % 0 /100 WBC (0); Platelet Count 100 Thou/mm3 (140-440); Red Blood Count 4.11 Miln/mm3 (4.00-5.20); White Blood Count 3.6 Thou/mm3 (3.6-11.0)
[2024-08-18 06:29] LABS: Alanine Aminotransferase 125 U/L (10-49); Alkaline Phosphatase 89 U/L (46-116); Anion Gap 5 (7-16); Aspartate Amino Transferase 151 U/L (0-34); BUN/Creatinine Ratio 10 Ratio (12-20); Bilirubin,Total 1.2 mg/dL (0.3-1.2); Blood Urea Nitrogen 6 mg/dL (9-23); Carbon Dioxide 27.7 mMol/L (20.0-31.0); Chloride 100 mMol/L (98-107); Creatinine (Component) 0.6 mg/dL (0.6-1.3); Estimated Creatinine Clearance 119.1 mL/min (>60); Glucose 104 mg/dL (74-106); Osmolality,Calculated 263 (275-295); Phosphorous 2.6 mg/dL (2.4-5.1); Potassium 3.2 mMol/L (3.4-5.1); Sodium 133 mMol/L (136-145); Total Protein 7.9 gm/dL (5.7-8.2); eGFR > 60 See Note
[2024-08-18 06:39] LABS: Albumin, Serum 4.5 gm/dL (3.5-5.0); Albumin/Globulin Ratio 1.3 (1.2-2.2); Globulin 3.4 gm/dL (2.3-3.5)
[2024-08-18] MEDS: OCTREOTIDE ACET INJ 1,000 MCG in SODIUM CHLORIDE 0.9% 100 ML 5.1 MCG IV (07:21)
[2024-08-18] MEDS: THIAMINE 100 MG TABLET PO ×2 (09:33→20:23)
[2024-08-18] MEDS: CALCIUM CARBONATE 600 MG TABLET PO (09:33)
[2024-08-18] MEDS: FOLIC ACID 1 MG TABLET PO ×2 (09:33→20:23)
[2024-08-18] MEDS: POTASSIUM CHLORIDE 20 mEq TABCR 40 MEQ PO (09:36)
[2024-08-18] MEDS: PANTOPRAZOLE INJ 40 MG VIAL IVP ×2 (09:37→20:22)
--- NOTE | 2024-08-18 10:26 | ESCONSULT_ITS ---
HPI Data of Consult Consult date: 08/18/24 Requesting Physician: Mayonr Villar DO Primary Care Provider: Physician No Primary/Family Consult Narrative Reason for consult: History of renal cell CA History of present illness: Patient is a 43-year-old lady seen at the cancer center 2 years ago receiving Venofer infusions iron deficiency anemia when it was also noted that patient had left kidney grade 1 renal cell CA. Patient was referred to [facility], with records indicating that she was noncompliant but states that she had it resected earlier this year. On admission however MRI of the abdomen 08/17/2024 shows solid mass lower pole of the left kidney 27 x 26 mm which is about the same size as tumor noted on left kidney MRI of 03/08/2023. Admitted with GI hemorrhage thought to be related to alcohol induced liver disease with cirrhosis and thrombocytopenia. Hemoglobin 6.8 platelets 58,000. Upper endoscopy performed by Dr. Mcdonald revealed grade 1 esophageal varices lower third of esophagus with gastritis. After 1 unit packed cells octreotide hemoglobin has improved to 8.9 this a.m. AST ALT considerably elevated with bilirubin in normal range. CT scan abdomen pelvis 08/16/2024 acute acalculous cholecystitis cirrhosis prominent splenomegaly small bowel ileus versus hepatic enteropathy. But is now referred for oncological consultation. cc:: cc: Maynor Villar DO Past Medical History Surgical History OTHER SURGICAL HX: Reportedly had partial nephrectomy for left renal tumor at [facility] earlier this year. 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 History of bleeding with internal hemorrhoids status post banding. Hypertension. Meds Home Medications and Allergies Home Medications ?Medication ?Instructions ?Recorded ?Confirmed ?Type No Known Home Medications 08/16/24 08/16/24 History Allergies Allergy/AdvReac Type Severity Reaction Status Date / Time amoxicillin Allergy Severe Hives Verified 08/17/24 18:43 Penicillins Allergy Severe Hives Verified 08/17/24 18:43 Exam Vital Signs Temp Pulse Resp BP Pulse Ox O2 Del Method O2 Flow Rate 96.9 F 62 18 104/75 99 Room Air 3 08/18/24 08:00 08/18/24 08:34 08/18/24 08:34 08/18/24 08:00 08/18/24 08:00 08/18/24 08:00 08/17/24 18:20 Narrative Exam Appearing comfortable answers questions appropriately Results Labs 08/18/24 05:19 08/18/24 05:19 Labs: Short CBC 08/17/24 08/18/24 Range/Units 12:00 05:19 WBC 3.6 (3.6-11.0) Thou/mm3 Hgb 9.1 L D 8.9 L (12.0-16.0) g/dL Hct 30.6 L 29.8 L (36.0-46.0) % Plt Count 100 L D (140-440) Thou/mm3 BMP 08/18/24 05:19 Sodium 133 L Potassium 3.2 L D Chloride 100 Carbon Dioxide 27.7 BUN 6 L Creatinine 0.6 Glucose 104 Calcium 9.0 Liver Function 08/18/24 Range/Units 05:19 Total Bilirubin 1.2 (0.3-1.2) mg/dL AST 151 H (0-34) U/L ALT 125 H (10-49) U/L Alkaline Phosphatase 89 (46-116) U/L Albumin 4.5 D (3.5-5.0) gm/dL Assessment and Plan Additional Assessment & Plan Additional Plan: 1. Admitted with GI hemorrhage related to cirrhotic alcohol liver disease with thrombocytopenia and anemia. Improved with octreotide and PRBC transfusion. 2. Endoscopy reveals esophageal varices grade 1 lower third of the esophagus along with gastritis. 3. Noted to have stage I grade 1 renal cell CA left kidney 2 years ago, reportedly had resection earlier this year at [facility] according to patient. 4. Still prominent left renal mass noted slightly larger than imaging studies of a year ago. 5. Told patient to have follow-up at [facility] and will attempt to get records from [facility].,
[2024-08-18] MEDS: LORazepam 2 MG/ML VIAL 1 MG IV (14:00)
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
--- NOTE | 2024-08-18 18:34 | SUR.PHASEI ---
1834: pt received from [place] via [employer]. received report from CLAUDIA Munson. pt sleeping at this time. no s/s of pain or discomfort. no s/s of resp. distress or discomfort.
--- NOTE | 2024-08-18 18:50 | SUR.PHASEI ---
1850: pt awake and alert. able to pass gas, per patient abdominal discomfort was relieved.
--- NOTE | 2024-08-18 19:03 | SUR.PHASEI ---
1902: report given to CLAUDIA Aguirre
--- NOTE | 2024-08-18 19:06 | SUR.PHASEI ---
1906: pt transferred back to room 378. pt alert and oriented. no s/s of pain or discomfort. no s/s of resp. distress or discomfort.
--- NOTE | 2024-08-18 19:15 | PC.NURSE ---
Patient back to room via gurney.
[2024-08-18] MEDS: cefTRIAXone/D5w 1gm IV premix 50 ML IV (20:23)
[2024-08-19] VITALS (7 sets, daily range): BP systolic 106–144; BP diastolic 70–97; PULSE 67–90; RESP 16–18; TEMP 36.1–36.4; O2SAT 96–98
[2024-08-19] MEDS: OCTREOTIDE ACET INJ 1,000 MCG in SODIUM CHLORIDE 0.9% 100 ML 5.1 MCG IV (04:29)
[2024-08-19 06:19] LABS: Basophils % (Auto) 0 % (0-2.5); Eosinophils # (Auto) 0.1 Thou/mm3 (0.0-0.5); Eosinophils % (Auto) 2 % (0-10); Hematocrit 27.6 % (36.0-46.0); Hemoglobin 8.1 g/dL (12.0-16.0); Immature Granulocytes % (Auto) 0 % (0-0); Immature Granulocytes Auto 0.01 Thou/mm3 (0.00-0.00); Lymphocytes # (Auto) 0.6 Thou/mm3 (1.0-4.8); Lymphocytes % (Auto) 21 % (10-50); Mean Corpuscular HGB Conc 29.3 g/dl (31.0-37.0); Mean Corpuscular Hemoglobin 21.7 pg (25.0-35.0); Mean Corpuscular Volume 74 fL (80-100); Monocytes # (Auto) 0.5 Thou/mm3 (0.0-0.8); Monocytes % (Auto) 19 % (0-12); Neutrophils # (Auto) 1.6 Thou/mm3 (1.8-7.7); Neutrophils % (Auto) 57 % (37-80); Nucleated Red Blood Cell % 0 /100 WBC (0); Platelet Count 99 Thou/mm3 (140-440); RDW Standard Deviation 53.7 fL (36.4-46.3); Red Blood Count 3.74 Miln/mm3 (4.00-5.20)
[2024-08-19 06:20] LABS: White Blood Count 2.7 Thou/mm3 (3.6-11.0)
[2024-08-19 06:45] LABS: Alanine Aminotransferase 99 U/L (10-49); Albumin, Serum 3.7 gm/dL (3.5-5.0); Albumin/Globulin Ratio 1.3 (1.2-2.2); Alkaline Phosphatase 73 U/L (46-116); Anion Gap 3 (7-16); Aspartate Amino Transferase 101 U/L (0-34); BUN/Creatinine Ratio 11 Ratio (12-20); Blood Urea Nitrogen 8 mg/dL (9-23); Calcium 8.4 mg/dL (8.3-10.6); Calcium (Corrected) 8.6 mg/dL (8.5-10.1); Carbon Dioxide 24.8 mMol/L (20.0-31.0); Chloride 107 mMol/L (98-107); Creatinine (Component) 0.7 mg/dL (0.6-1.3); Estimated Creatinine Clearance 102.1 mL/min (>60); Globulin 2.9 gm/dL (2.3-3.5); Glucose 87 mg/dL (74-106); Magnesium 1.6 mg/dL (1.6-2.6); Osmolality,Calculated 267 (275-295); Potassium 4.4 mMol/L (3.4-5.1); Sodium 135 mMol/L (136-145); Total Protein 6.6 gm/dL (5.7-8.2); eGFR > 60 See Note
[2024-08-19] MEDS: HYDROcodone/APAP 5/325 TABLET 1 TAB PO ×2 (07:37→11:45)
[2024-08-19] MEDS: LORazepam 0.5 MG TABLET PO ×2 (07:37→11:46)
[2024-08-19] MEDS: PANTOPRAZOLE INJ 40 MG VIAL IVP (08:28)
[2024-08-19] MEDS: THIAMINE 100 MG TABLET PO (08:28)
[2024-08-19] MEDS: CALCIUM CARBONATE 600 MG TABLET PO (08:28)
[2024-08-19] MEDS: FOLIC ACID 1 MG TABLET PO (08:28)
[2024-08-19] MEDS: Magnesium Sulfate 4 GM Ivpb 4 GM/50 ML BAG IV (09:17)
--- NOTE | 2024-08-19 11:42 | ESDS_ITS ---
<Statement entered by Vianney Rao DO - 08/20/24 07:31> I, Vianney Rao DO, attest that I was physically present for the colon portions of the service and evaluated the patient with the resident and I reviewed and discussed the case with the resident and agree with the resident's findings and plans of care as documented above Planned Discharge Date 08/19/24 DS: Providers Provider Date of admission: 08/16/24 14:50 Primary care physician: Physician No Primary/Family Admitting Provider: Maynor Villar DO Attending Provider on Admission: Maynor Villar DO Consults: 08/16/24 13:18 Consult to Gastroenterology Stat Comment: GI bleed Consulting Provider: Vinayak Mcdonald 08/18/24 09:48 Consult to Oncology Routine Comment: Consulting Provider: Tyrone Mondragon Attending Provider on DC: Vianney Rao DO Discharging Provider: Colin Sarkar DS: Diagnosis Problem List Completed Was Problem List Reviewed/Reconciled?: Yes Hospital Course Hospital Course Hospital course: Patient is a 43-year-old female with a past medical history significant of decompensated alcoholic cirrhosis with esophageal varices and history of lower GI bleed due to bleeding internal hemorrhoids s/p banding, sciatica, history of left kidney tumor s/p ablation January 2023 at [facility], essential hypertension presented with chief complaint of blood in his stool for the past 4 days. She seen at the cancer center 2 years ago receiving Venofer infusions for iron deficiency anemia, history of left kidney grade 1 RCC post ablation and [facility] per records showed noncompliant to the center. Patient was admitted for GI bleed workup. GI specialist was consulted and patient underwent EGD showing grade 1 esophageal varices lower third esophagus with gastritis. She received 1 unit PRBC during hospital course and was started on octreotide drip which was given for 2 days per GI specialist not needed to continue for total 5 days. Colonoscopy only showed hemorrhoids. Patient was also found to have solid mass lower pole of left kidney 27 x 26 mm which is about the same size as tumor noted in the left kidney MRI 03/08/2023. CT abdomen showed acalculous cholecystitis cirrhosis prominence versus small bowel ileus versus hepatic enteropathy. Oncologist was consulted and per recommendations she was advised to follow-up with oncologist Dr. Mondragon as outpatient after getting referral from primary care physician after follow-up within a week. Patient was seen and examined at the bedside today. Her hemoglobin was stable at 8.1. She was medically stable to be discharged and GI gave clearance. Patient was discharged to home. Problem list: # Acute blood loss anemia # Esophageal varices, grade 1 with gastritis per EGD # Hemorrhoids per colonoscopy # Acalculous cholecystitis less likely # Decompensated liver cirrhosis alcohol induced with ascites esophageal varices, splenomegaly, thrombocytopenia and coagulopathy # Alcohol use disorder # Possible suspected RCC left kidney post ablation at [facility] # Essential hypertension # Electrolyte disturbance, resolved # Leukopenia # Thrombocytopenia # Elevated transaminases Discharge instructions: Take all home medication as prescribed Continue taking Protonix 40 mg once a day for 2 weeks Advised to completely stop drinking alcohol due to esophageal varices seen on EGD Follow-up with PCP as outpatient within a week [phone] at [facility] Follow-up with oncologist, Dr. Mondragon to evaluate left renal mass within a week after scheduling appointment at [phone] In case of emergency, call 911 or come back to the ED Patient was seen and discussed with attending physician, Dr. Jalen Asher MD, PGY 2 Time Spent with Patient Time attestation: Total time spent providing and/or coordinating discharge services: Exam Vital Signs Temp Pulse Resp BP Pulse Ox O2 Del Method O2 Flow Rate 96.9 F 74 16 144/97 H 97 Room Air 3 08/19/24 07:56 08/19/24 08:00 08/19/24 07:56 08/19/24 07:56 08/19/24 07:56 08/19/24 07:56 08/18/24 18:25 Narrative Exam Constitutional Alert, oriented x 3 and tearful. Young female HEENT Vision grossly intact. Patent nares. Trachea midline Respiratory Chest normal on inspection and clear auscultation bilaterally Cardiovascular S1 and S2 audible, RRR. No murmurs carotid bruit. No gross JVD. Abdominal Obese, tense and tender to palpation in epigastrium. No right upper quadrant tenderness, negative for asterixis, BS + Genitourinary No bladder tenderness, no flank pain. Normal to palpation Musculoskeletal Extremities tone within normal limits. Trace LE edema. Neurological CN II - XII grossly intact. Extremity motor and sensation grossly intact. Skin Warm, dry and intact. No apparent lesions. Psychiatric Patient is tearful. Discharge Plan Plan Patient Disposition: HOME (Self Care) Care Plan Goals: Take all home medication as prescribed Continue taking Protonix 40 mg once a day for 2 weeks Advised to completely stop drinking alcohol due to esophageal varices seen on EGD Follow-up with PCP as outpatient within a week [phone] at [facility] Follow-up with oncologist, Dr. Mondragon to evaluate left renal mass within a week after scheduling appointment at [phone] In case of emergency, call 911 or come back to the ED Prescriptions/Referrals Prescriptions/Med Rec: New thiamine mononitrate (vit B1) 100 mg Tablet 100 mg PO BID 14 Days Qty: 28 0RF folic acid 1 mg Tablet 1 mg PO BID 14 Days Qty: 28 0RF pantoprazole 40 mg tablet,delayed release (DR/EC) 40 mg PO QDAY Qty: 14 0RF Referrals: No Primary/Family,Physician [Primary Care Provider] - Kwame Asher MD [Resident] - Patient/Caregiver Discharge Instructions Print Language: Lithuanian Stand Alone Forms: Christina Award Info., Patient Portal Info Letter Discharge Order Discharge Orders: Discharge (Routine); Ordered 08/19/24 Ordered By: Kwame Asher Quality Discharge Quality Measures VTE prophylaxis (SCDs)
--- NOTE | 2024-08-19 19:41 | PD.IMPROG ---
Documentation for date of: 08/19/24 Subjective Subjective Interval history: Late entry for the note Case discussed with internal medicine team Okay to discharge patient home after band ligation of the internal hemorrhoids No need for GI follow-up Patient can be followed by the primary care physician Exam Vital Signs Temp Pulse Resp BP Pulse Ox O2 Del Method O2 Flow Rate 96.9 F 88 18 121/86 H 97 Room Air 3 08/19/24 12:00 08/19/24 12:00 08/19/24 12:00 08/19/24 12:00 08/19/24 12:00 08/19/24 12:00 08/18/24 18:25 Objective Labs 08/19/24 05:55 08/19/24 05:55 Labs: Laboratory Results - last 24 hr 08/16/24 08/19/24 10:15 05:55 WBC 2.7 L RBC 3.74 L Hgb 8.1 L Hct 27.6 L MCV 74 L MCH 21.7 L MCHC 29.3 L RDW Std Deviation 53.7 H Plt Count 99 L Neut % (Auto) 57 Lymph % (Auto) 21 [place] % (Auto) 19 H Eos % (Auto) 2 Baso % (Auto) 0 Neut # (Auto) 1.6 L Lymph # (Auto) 0.6 L [place] # (Auto) 0.5 Eos # (Auto) 0.1 Baso # (Auto) 0.0 Immature Gran # (Auto) 0.01 H Absolute Nucleated RBC 0.00 Immature Gran % 0 Nucleated RBC % 0 Sodium 135 L Potassium 4.4 D Chloride 107 Carbon Dioxide 24.8 Anion Gap 3 L BUN 8 L Creatinine 0.7 Estim Creat Clear Calc 102.1 eGFR > 60 BUN/Creatinine Ratio 11 L Glucose 87 Calculated Osmolality 267 L Calcium 8.4 Corrected Calcium 8.6 Phosphorus 3.0 Magnesium 1.6 Total Bilirubin 1.0 AST 101 H ALT 99 H Alkaline Phosphatase 73 Total Protein 6.6 Albumin 3.7 D Globulin 2.9 Albumin/Globulin Ratio 1.3 Crossmatch See Detail Impressions Impression: # Hematochezia status post band ligation of the internal hemorrhoids Plan As under HPI Assessment & Plan A&P Narrative 1. Admitted with GI hemorrhage related to cirrhotic alcohol liver disease with thrombocytopenia and anemia. Improved with octreotide and PRBC transfusion. 2. Endoscopy reveals esophageal varices grade 1 lower third of the esophagus along with gastritis. 3. Noted to have stage I grade 1 renal cell CA left kidney 2 years ago, reportedly had resection earlier this year at [facility] according to patient. 4. Still prominent left renal mass noted slightly larger than imaging studies of a year ago. 5. Told patient to have follow-up at [facility] and will attempt to get records from [facility]., Time Spent With Patient Time: Total time spent is greater than 50% in coordination of care (as documented) at patient's floor/unit and/or counseling patient:
== END 2024-08-19 13:19 | disposition home or self-care (01) | DRG 226 ==
LOC: SERX 15:25 → SERHOLD 15:36 → S3SX 17:16
PROVIDERS: Specialist; Admitting Provider Student in an Organized Health Care Education/Training Program; Emergency Provider Emergency Medicine; Visit Provider Student in an Organized Health Care Education/Training Program
PROC: 0DJ08ZZ Inspection of Upper Intestinal Tract, Via Natural or Artificial Opening Endoscopic (ICD-10-PCS; CPT 43239; principal; 2024-08-17 16:00)
PROC: 0DJD8ZZ Inspection of Lower Intestinal Tract, Via Natural or Artificial Opening Endoscopic (ICD-10-PCS; CPT 45378; principal; 2024-08-18 17:30)
DX: K64.8 Other hemorrhoids (principal); K81.0 Acute cholecystitis; D62 Acute posthemorrhagic anemia; E87.6 Hypokalemia; E83.42 Hypomagnesemia; K70.31 Alcoholic cirrhosis of liver with ascites; I10 Essential (primary) hypertension; E83.51 Hypocalcemia; K29.70 Gastritis, unspecified, without bleeding; D72.819 Decreased white blood cell count, unspecified; D69.59 Other secondary thrombocytopenia; Y90.0 Blood alcohol level of less than 20 mg/100 ml; N28.89 Other specified disorders of kidney and ureter; D68.9 Coagulation defect, unspecified; M54.30 Sciatica, unspecified side; R16.1 Splenomegaly, not elsewhere classified; I85.10 Secondary esophageal varices without bleeding; F10.139 Alcohol abuse with withdrawal, unspecified; Z85.528 Personal history of other malignant neoplasm of kidney; Z91.199 Patient's noncompliance with other medical treatment and regimen due to unspecified reason; T46.4X6A Underdosing of angiotensin-converting-enzyme inhibitors, initial encounter; Z91.128 Patient's intentional underdosing of medication regimen for other reason; Z87.19 Personal history of other diseases of the digestive system
CPT/HCPCS: 36415; 74174; 74182; 76705; 80053; 80307; 80320; 81001; 82140; 82150; 83690; 83735; 84100; 84703; 85014; 85018; 85025; 85610; 85730; 86850; 86900; 86901; 86921; 86922; 93225; 96374; 96375; 99291; A4217; A4649; A9579; J0696; J1200; J2060; J2175; J2250; J2354; J2405; J2470; J2543; J2919; J3010; J3411; J3475; J3490; J7030; J7050; P9016; Q9967; S8037; 74181; A9270; G0480

== ENCOUNTER 2024-08-28 13:00 | Outpatient (RCR) | payer MEDICAID, SELFPAY ==
--- NOTE | 2024-08-10 10:40 | PT.OIERPT ---
PT OP Initial Eval Patient Information Outpatient Physical Therapy Treatment Date: 08/10/24 Visit Reasons: Lumbago sciatica left side Medical Diagnosis: M54.42 Treatment Dx #1: Back Pain Start of Care: 08/10/24 Smoking Status Smoking Status: Current some day smoker (yes) Cessation Counseling Provided: DONNA was advised that quitting smoking is the single most important factor to protect the health of themselves and their family. Discussed the benefits of quitting smoking with patient. Encouraged patient to quit smoking and provided Cessation assistance materials and resources. Tobacco Use: Cigarette Years smoked: 10 Are you interested in quitting?: No Would you like additional Smoking Cessation Counseling?: No Initial Assessment Subjective: Pt is a 43 y/o female reports of chronic back pain with worsening left LE numbness in the past year. Per provider's note Pt has severe L4-L5 DDD and moderate to severe L5-S1 DDD. No recent MRI thus far. Pt has limitation with sitting, standing, chores, self care, cooking, cleaning, and performing recreational activities. Objective: L/S AROM: all motions are 50 % towards end range with pain in all plane Hip PROM: all motions are WFL Hip MMTs: grossly 3/5 Special Test (+) slump (+) left SLR Assessment: Pt demonstrate back pain with mobility deficits consistent with discogenic involvement leading to difficulty with ADLs. Pt will attempt physical therapy if pain persist Pt will be refer back to provider for further consultation. 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
--- NOTE | 2024-08-14 11:48 | PT.ODAYNRPT ---
PT Outpatient Daily Note OP Daily Note Outpatient Physical Therapy Treatment Date: 08/14/24 Visit Reasons: Lumbago sciatica left side Subjective: Pt's back is hurting and very sensitive. Objective: Please see flow chart for list of ther ex performed Assessment: guarded with all exercises due to pain. supine heat helped with patient tolerating exercises Plan: Continue with PT Length of Time (minutes) of Treatment: 30 Minutes Procedure Charges Therapeutic Exercise 30 minutes: Yes
--- NOTE | 2024-08-28 13:28 | PT.ODAYNRPT ---
PT Outpatient Daily Note OP Daily Note Outpatient Physical Therapy Treatment Date: 08/28/24 Visit Reasons: Lumbago sciatica left side Subjective: Pt's back is same and continues to hurt. No change in symptoms or pain after last session. Objective: Please see flow chart for list of ther ex performed Assessment: no change in pain and very guarded with all exercises. Pt encourage to complete instructed reps Plan: Continue with PT Length of Time (minutes) of Treatment: 30 Minutes Procedure Charges Therapeutic Exercise 30 minutes: Yes
== END 2024-09-05 23:59 | disposition home or self-care (01) ==
LOC: CPTX 13:00
PROVIDERS: PCP Nurse Practitioner; Referring Provider Nurse Practitioner; Visit Provider Nurse Practitioner
DX: M54.42 Lumbago with sciatica, left side (principal)
CPT/HCPCS: 97110; 97162

== ENCOUNTER 2024-09-15 10:38 | Outpatient (AMB) | payer MEDICAID, SELFPAY ==
[2024-09-15 10:30] VITALS: BP 153/107; PULSE 99; RESP 18; TEMP 36.8; O2SAT 98; BMI 27.6
--- NOTE | 2024-09-15 10:30 | PD.RESCLINIC ---
Vital Signs 09/15/24 10:30 Height 1.63 m Height Method Stated Weight 73.085 kg Weight Measurement Method Standing Scale BMI 27.6 BP 153/107 H Blood Pressure Source Automatic Cuff Blood Pressure Location Left Upper Arm Position Sitting Respiration 18 Pulse 99 Pulse Source Monitor Temp 98.2 F Temp Source Oral Pulse Oximetry (%) 98 Oxygen Delivery Method Room Air Allergies/Meds Allergies & Medications Allergies amoxicillin Allergy (Severe, Verified 09/15/24 11:29) Hives Penicillins Allergy (Severe, Verified 09/15/24 11:29) Hives Medication Reconciliation pantoprazole 40 mg tablet,delayed release 40 mg PO QDAY #14 tabs 08/19/24 [Rx Confirmed 09/15/24] MA Intake Visit Data Collection New Patient or Established: Established Patient (seen at [facility] within 3 years) Seen by Clinical Staff ONLY (RN/MA): No Pain Present Currently: Yes Pain Location: Back Pain scale:: 4 Pain Scale Used: Corrigan-Calderon/Numerical Shirt Hemmer Required: No PCP or OBGYN visit in last 3 months: No Hx Now: No Do You Feel Safe at Home: Yes Authorities Contacted: N/A Smoking Status Smoking Status: Light (< 1 pack/day) Cessation Counseling Provided: DONNA was advised that quitting smoking is the single most important factor to protect the health of themselves and their family. Discussed the benefits of quitting smoking with patient. Encouraged patient to quit smoking and provided Cessation assistance materials and resources. Tobacco Use: Cigarette Years smoked: 0 Are you interested in quitting?: No Immunization / Flu Flu Vaccine in the Last 12 Months: No Flu Vaccine Exclusion Criteria: No Exclusion Criteria Past Medical History Past Medical History NEUROLOGIC: Negative Neurological Disorders or Seizures CARDIAC: Positive Hypertension; Negative Cardiac Disorders, Hypercholesterolemia or Congestive Heart Failure RESPIRATORY: Negative Chronic Obstructive Pulmonary Disease (COPD), Asthma or Sleep Apnea GASTROINTESTINAL: Positive Gastrointestinal Disorders, Cirrhosis and Gastrointestinal Bleed GENITOURINARY: Negative Genitourinary Disorders or Renal Disease REPRODUCTIVE: Negative Pelvic Inflammatory Disease ENDOCRINE: Negative Endocrine Disorders, Diabetes Mellitus Type 1 or Diabetes Mellitus Type 2 HEMATOLOGIC: Positive Blood Disorders and Anemia; Negative Sickle Cell Disease PSYCHO/SOCIAL: Positive Anxiety OTHER HISTORY: Positive Falls, Blood Transfusions, Chicken Pox and Cancer; Negative Autoimmune Disease, Blood Transfusion Reaction or Anesthesia Reactions Family History FAMILY HISTORY: Positive Family Gastrointestinal Problems Social History SMOKING STATUS: Smoking status: Light (< 1 pack/day) SECOND HAND EXPOSURE: second hand exposure: No ALCOHOL: Alcohol Intake: Current ALCOHOL FREQUENCY: Alcohol Intake Frequency: 0-2 Drinks per Day HOUSING: Housing: House LIVES WITH: Lives With: Significant Other Patient Portal Questionairjacqueline Social History Living Situation History Housing: House Housing Other:: pt lives with boyfriend Tobacco History Smoking Status: Light (< 1 pack/day) Second Hand Smoke Exposure: No Alcohol History Alcohol Intake: Current Alcohol Intake Frequency: 0-2 Drinks per Day Substance Use History Substance Use: Marijuana Domestic Abuse History Do You Feel Safe at Home: Yes Review of Systems Report any current symptoms Only answer those that you have currently: Past Medical History Past Medical History Have you ever been diagnosed with any of the following: Neurological Problems Seizures: No Cardiology Problems Hypercholesterolemia: No Congestive Heart Failure: No Hypertension: Yes Respiratory Problems Chronic Obstructive Pulmonary Disease (COPD): No Asthma: No Sleep Apnea: No Stomache/Intestinal Problems Cirrhosis: Yes Gastrointestinal Bleed: Yes Genital/Urinary Problems Renal Disease: No Reproductive Problems Pelvic Inflammatory Disease: No Endocrine Problems Diabetes Mellitus Type 1: No Diabetes Mellitus Type 2: No Blood Problems Anemia: Yes Sickle Cell Disease: No Psychologic Problems Anxiety: Yes Other Problems Autoimmune Disease: No Falls: Yes Blood Transfusions: Yes Blood Transfusion Reaction: No Anesthesia Reactions: No Chicken Pox: Yes Cancer: Yes History of Present Illness HPI Narrative The patient is a 43-year-old female with a past medical history of alcoholic cirrhosis, grade 1 esophageal varices, history of GI bleed, history of renal cell carcinoma status post ablation January 2023 at [facility], hypertension, came for a follow-up visit following discharge from the hospital a few weeks ago. The patient has a history of medical noncompliance, I counseled her extensively but she remained adamant that she will not take any prescribed medications. Patient reported not taking any medications prescribed on the previous discharge from hospital, as well as stating that she does not stay compliant with any of the medications that her outpatient providers from [facility] have given her. The patient was most concerned about her back pain and was going to physical therapy but so far 3 sessions have not worked for her. She was teary-eyed that she used to be a runner but cannot even walk around the house without back pain. She has a history of alcoholism, and quit following previous hospital admission, I offered help with alcoholism and addiction but she refused. The patient is also concerned about a new mass in her kidney, she reported that she had cancer of the kidney and had ablation procedure done at tertiary care center, but the cancer has returned and wanted more information about it as well as requires a referral to [facility] to see Dr. Mondragon radiation oncologist. Chart review shows MRI of the abdomen 08/17/2024 shows solid mass lower pole of the left kidney 27 x 26 mm which is about the same size as tumor noted on left kidney MRI of 03/08/2023. Review of Systems Review of Systems Systems Reviewed: All systems reviewed, normal except as documented Objective/Exam Narrative Physical exam: General: AOx3, cooperative Skin: Intact, no cyanosis or edema noted. HEENT: Atraumatic/normocephalic, GINGER, neck supple Heart: RRR, S1 and S2 without clicks or murmurs Lungs: Clear on auscultation bilaterally, no difficulty breathing Abdomen: Soft, nontender. Bowel sounds present . Vascular: Peripheral pulses palpable Neuro: No focal neurological deficits noted. Assessment & Plan Diagnosis / Problem List (1) Alcoholic cirrhosis of liver: Status: Acute Qualifiers: Ascites presence: unspecified Qualified Code(s): K70.30 - Alcoholic cirrhosis of liver without ascites Assessment & Plan: Decompensated cirrhosis given the presence of ascites and esophageal varices, grade 1 on previous EGD. Likely alcohol induced as patient was a heavy drinker, quit only few weeks ago. I counseled patient extensively regarding medications including spironolactone and or lactulose or beta-lorna. But the patient is adamant she does not want any medications for any of her diagnosis. I asked patient for her understanding of cirrhosis and educated her, she did appreciate that and said no one had told her how bad her liver was. I asked patient regarding her concern regarding not taking medications, answering concerns but was not able to make any progress, for now, I will respect patient wishes, and restart that conversation on the next visit. Plan: - Will continue following up with the next visit (2) Severe anemia: Status: Acute Assessment & Plan: History of GI bleed likely leading to anemia as well as Cirrhosis may also be causing leukopenia anemia and thrombocytopenia. Plan: ? Continue follow-up (3) GI bleed: Status: Acute Assessment & Plan: History of GI bleed, she has varices, noted grade 1 esophageal varices on previous EGD, has history of variceal banding. Nonselective beta-lorna therapy was ordered but patient refused, Protonix was offered but patient refused. Plan: ? Continue follow-up (4) Renal mass: Status: Acute Assessment & Plan: The patient has a history of renal mass, biopsy-proven renal cell carcinoma, from [facility], history of IR ablation. The patient is also concerned about a new mass in her kidney, she reported that she had cancer of the kidney and had ablation procedure done at tertiary care center, but the cancer has returned and wanted more information about it as well as requires a referral to [facility] to see Dr. Mondragon radiation oncologist. Chart review shows MRI of the abdomen 08/17/2024 shows solid mass lower pole of the left kidney 27 x 26 mm which is about the same size as tumor noted on left kidney MRI of 03/08/2023. Plan: ? Referral to radiation oncologist Dr. Mondragon is placed. Orders: Referrals Oncology N28.89 - Other specified disorders of kidney and ureter Office Procedures [facility] Level of Care Nursing/Assessment Patient Status: Established Patient Nursing Assessment/Reassessment: Medication Reconciliation, Update PMH in EMR and Vital Signs Coordination of Care: Complex Care and Chronic Disease 1-5, Consent,records obtained, informed consent, Education Simp Pt/Fam, 1 Ins Authorization, Ref for ancillary service and Staff clarify orders Established Patient Charge Established Patient Point Assignment: 120 Established Patient Point Charge: Level 4 (120-155)
== END 2024-09-15 11:15 | disposition home or self-care (01) ==
LOC: HODAHC 10:38
PROVIDERS: Supervising Provider Internal Medicine; Visit Provider Student in an Organized Health Care Education/Training Program
DX: K70.30 Alcoholic cirrhosis of liver without ascites (principal); D64.9 Anemia, unspecified; I85.00 Esophageal varices without bleeding; C64.9 Malignant neoplasm of unspecified kidney, except renal pelvis
CPT/HCPCS: 99214; G0463

== ENCOUNTER 2024-09-19 10:30 | Outpatient (RCR) | payer MEDICAID, SELFPAY ==
--- NOTE | 2024-09-12 10:44 | PT.ODAYNRPT ---
PT Outpatient Daily Note OP Daily Note Outpatient Physical Therapy Treatment Date: 09/19/24 Visit Reasons: low back sciatica Subjective: Pt reports pain continues to be present and consistent. Objective: Please see flow sheet for ther ex list. Assessment: Pt presents in clinic with poor activity tolerance due to high pain response. Modified exercises to pt tolerance. Plan: Continue with POC. Procedure Charges Therapeutic Exercise 30 minutes: Yes
--- NOTE | 2024-09-14 14:10 | PT.ODAYNRPT ---
PT Outpatient Daily Note OP Daily Note Outpatient Physical Therapy Treatment Date: 09/14/24 Visit Reasons: low back sciatica Subjective: Pt c/o moderate LBP and pain on L side glute and posterior thigh. Objective: Please see flow sheet for ther ex list. Assessment: Performed STM resulting in decrease c/o pain. Plan: Continue with POC. Length of Time (minutes) of Treatment: 30 Minutes Procedure Charges Therapeutic Exercise 30 minutes: Yes
--- NOTE | 2024-09-19 11:37 | PT.ODS1RPT ---
PT OP Progress/Discharge Note Date of Service: 09/19/24 Progress Note/DC Note Progress Note/Discharge Note: DC Note Patient Information Visit Reasons: low back sciatica Medical Diagnosis: M54.42 Treatment Dx #1: Back Pain Service Discharge Date: 09/19/24 Status Subjective: Pt's back pain continues to be persistent and same since starting physical therapy. Pt still has intermittent numbness and tingling down the legs. Due to pain Pt has limitation with all ADLs. Pt will like to stop physical therapy and follow up with provider. Objective: L/S AROM: all motions are WFL Hip PROM: all motions are WFL Hip MMTs: grossly 3+/5 Special Test (+) slump (+) SLR Assessment: Pt continues to exhibit pain and numbness fown the LEs leading to difficulty with ADLs. Pt will no longer benefit from physical therapy due to plateau towards goals. Recommend L/S MRI to help rule in/out nature of pain. Pt was instructed on HEP last session and educated to continue exercises to maintain overall mobility. Pt performed all exercises safely, thank you for your referrals. Plan: D/C home with HEP and follow up with MD VELÁSQUEZ Recommend L/S MRI Procedure Charges Therapeutic Exercise 30 minutes: Yes
== END 2024-10-06 23:59 | disposition home or self-care (01) ==
LOC: CPTX 10:30
PROVIDERS: PCP Nurse Practitioner; Referring Provider Nurse Practitioner; Visit Provider Nurse Practitioner
DX: M54.42 Lumbago with sciatica, left side (principal)
CPT/HCPCS: 97110

== ENCOUNTER 2024-12-13 08:56 | Outpatient (RCR) | payer MEDICAID, SELFPAY ==
--- NOTE | 2024-12-14 02:37 | CTCCONSULT_ITS ---
Patient: DONNA DAVILA : 1980 MR#: [id number] Page 4 of 5 CONSULTATION NOTE DATE OF CONSULTATION: 12/13/2024 NAME: DONNA DAVILA ACCOUNT: [id number] : 1980 AGE: 44 REFERRING PHYSICIAN: Arnel Mora MD PRIMARY PHYSICIAN: Arnel Mora MD REASON FOR VISIT: Establishing care for renal cell cancer End-stage liver disease ONCOLOGY HISTORY: DIAGNOSIS: Iron deficiency anemia, unspecified [ICD10] D50.9 DATE OF DIAGNOSIS: 06/18/2022 STAGE/TNM: Kidney left lower posterior mass suspicious for renal cell cancer clear-cell type Ciaran nuclear grade 1 TREATMENT HISTORY: Care?Plan Start?Date Cycle Day Intent VENOfer?200mg?IV?wkly?for?10?weeks 04/06/2022 1 70 Palliative HISTORY OF PRESENT ILLNESS: 44-year-old female is here to follow-up with recurrence of renal mass. Patient is a chronic alcohol user and have underlying cirrhosis as well as esophageal varices. Patient frequently cries during this visit. Patient was seen in [place] October [place], 2021 patient was seen at [facility] in [place], secondary to abdominal pain. Patient states, she experienced abdominal pain and bloody stools for about 6 months prior to seeking medical attention.she had CT of the abdomen which showed cirrhosis of the liver with abdominal ascites, splenomegaly, and a solid mass on the left kidney that measured 20 x 19 mm. She also received 3 units of PRBC while and [facility] emergency department. Patient states, she was then transferred to [facility] secondary to liver cirrhosis diagnosishe received MRI of the abdomen, paracenteses, colonoscopy which showed internal hemorrhoids and EGD which was normal. Patient underwent ablation of the renal mass. 08/17/2024 MRI of the liver very abnormal heterogeneous enhancement involving the cirrhotic liver. Solid mass is confirmed left lower pole left kidney 27 x 26 mm 08/16/2024 CT scan shows cirrhosis liver is replaced by multiple tiny low- density lesions recommend MRI. 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 No medications reported by patient - Medications Last Reconciled by Sandi Riley RN on 12/13/2024 ALLERGIES: Penicillins REVIEW OF SYSTEMS: A complete 14-point review of systems was performed and is negative except as noted in interval history. PHYSICAL EXAMINATION: VITAL SIGNS: Temperature?99.1, B/P?136/97, Height?64?inches, Oxygen?Saturation?100% Weight?172?lbs PAIN: 4 - Moderate pain ECOG Performance Status: 1 - Symptomatic; ambulatory; restricted in strenuous activity GENERAL APPEARANCE: Appears well, in no apparent distress, appropriately interactive. HEENT: Normocephalic, no temporal wasting, icteric , no lesions, neck normal range of motion. CARDIOVASCULAR: Not assessed. PULMONARY: Normal respiratory effort, no respiratory distress or use of accessory muscles, speaking in full sentences, no tachypnea. EXTREMITIES: No pedal edema or cyanosis. SKIN: Normal skin appearance. NEUROLOGIC: Alert and oriented x4. PSHYCHIATRIC: Patient frequently cries and avoids eye contact LABORATORY DATA: I have personally reviewed and interpreted each of the patient?s relevant lab tests, abnormal findings are below: Date 08/18/24 08/19/24 ??WHITE?BLOOD?COUNT?(Thou/mm3) 3.6 2.7?L ??RED?BLOOD?COUNT?(Miln/mm3) 4.11 3.74?L ??HEMOGLOBIN?(gm/dl) 8.9?L 8.1?L ??HEMATOCRIT?(%) 29.8?L 27.6?L ??PLATELET?COUNT?(Thou/mm3) 100?L 99?L ??NEUTROPHILS?%,?AUTO?(%) 67 57 ??LYMPH?%,?AUTO?(%) 19 21 ??NEUTROPHILS,?AUTO?(Thou/mm3) 2.4 1.6?L ??GLUCOSE,RANDOM?(mg/dL) ? 87 ??BLOOD?UREA?NITROGEN?(mg/dL) ? 8?L ??CREATININE?(mg/dL) ? 0.70 ??SODIUM?(mmol/L) ? 135?L ??POTASSIUM?(mmol/L) ? 4.4 ??CHLORIDE?(mmol/L) ? 107 ??CrCl?(CandG)?(ml/min) ? 111.85 ??AST/SGOT?(Unit/L) ? 101?H ??ALT/SGPT?(Unit/L) ? 99?H ??ALKALINE?PHOSPHATASE?(Unit/L) ? 73 ??BILIRUBIN,?TOTAL?(mg/dL) ? 1.0 ??PROTEIN?TOTAL?(gm/dl) ? 6.6 ??ALBUMIN,?SERUM?(gm/dl) ? 3.7 ??GLOBULIN?(gm/dl) ? 2.9 ??ALBUMIN/GLOBULIN?RATIO ? 1.3 ??CALCIUM,?SERUM?(mg/dL) ? 8.4 ??CALCIUM?SERUM?(CORRECTED)?(mg/dL) ? 8.6 ??MAGNESIUM?(mg/dL) ? 1.6 ASSESSMENT/PLAN: #1 renal mass Patient has recurrent renal mass Patient already have established care at [facility] I will refer Ms. Davila to higher level care for possible nephrectomy or partial nephrectomy Advised patient to call her old physician at [facility] and book an appointment for follow-up #2 end-stage liver disease Refer to hepatology Will do workup including hepatitis panel Need monitoring for possible development of hepatoma secondary to hide cirrhotic liver ORDERS: Order # Description [id number] MRI + Abdomen + Abdomen and Pelvis + With W/O Contrast [id number] Hep A, B and C panel [id number] Comprehensive Metabolic Panel - 12 + AFP + CBC with Auto Diff RETURN TO CLINIC: 4 weeks BILLING AND COMPLIANCE: I reviewed external records from providers outside my specialty as summarized above. I spent a total of 50 minutes on this patient?s care on the day of their visit excluding time spent related to any billed procedures. This time includes time spent with the patient as well as time spent documenting in the medical record, reviewing patients records and tests, obtaining history, placing orders, communicating with other healthcare professionals, counseling the patient, family or caregiver, and/or care coordination for the diagnoses above. Electronically Signed by: {Object.Sanct_ID*PnP.NameFL@M}, {Object.Sanct_ID*PnP.Suffix@U} D: {Object.Sanct_Date} T: {Object.Sanct_Time} CC: PCP: Arnel Mora Referring: Arnel Mora This document was completed utilizing speech recognition software. Grammatical errors, random word insertions, pronoun errors, and incomplete sentences are an occasional consequence of this system due to software limitations, ambient noise, and hardware issues. Any formal questions or concerns about the content, text or information contained within the body of this dictation should be directly addressed to the provider for clarification.
== END 2025-01-03 23:59 | disposition home or self-care (01) ==
LOC: SCTC 08:56
PROVIDERS: PCP Family Medicine; Referring Provider Internal Medicine Hematology & Oncology; Visit Provider Internal Medicine Hematology & Oncology
DX: N28.89 Other specified disorders of kidney and ureter (principal); K72.10 Chronic hepatic failure without coma
CPT/HCPCS: 99213; G0463

== ENCOUNTER 2025-04-17 08:22 | Outpatient (RCR) | payer MEDICAID, SELFPAY ==
[2025-04-17 09:32] LABS: Basophils # (Auto) 0.0 Thou/mm3 (0.0-0.2); Basophils % (Auto) 1 % (0-2.5); Eosinophils # (Auto) 0.1 Thou/mm3 (0.0-0.5); Eosinophils % (Auto) 3 % (0-10); Hematocrit 23.5 % (36.0-46.0); Immature Granulocytes Auto 0.01 Thou/mm3 (0.00-0.00); Lymphocytes # (Auto) 0.7 Thou/mm3 (1.0-4.8); Lymphocytes % (Auto) 19 % (10-50); Mean Corpuscular HGB Conc 28.1 g/dl (31.0-37.0); Mean Corpuscular Hemoglobin 19.2 pg (25.0-35.0); Mean Corpuscular Volume 68 fL (80-100); Monocytes # (Auto) 0.2 Thou/mm3 (0.0-0.8); Monocytes % (Auto) 6 % (0-12); Neutrophils # (Auto) 2.5 Thou/mm3 (1.8-7.7); Neutrophils % (Auto) 71 % (37-80); Nucleated Red Blood Cell # 0.00 Thou/mm3 (0.00-0.00); Nucleated Red Blood Cell % 0 /100 WBC (0); Platelet Count 86 Thou/mm3 (140-440); RDW Standard Deviation 43.6 fL (36.4-46.3); Red Blood Count 3.44 Miln/mm3 (4.00-5.20); White Blood Count 3.6 Thou/mm3 (3.6-11.0)
[2025-04-17 09:35] LABS: Hemoglobin 6.6 g/dL (12.0-16.0)
== END 2025-05-06 23:59 | disposition home or self-care (01) ==
LOC: SCTC 08:22
PROVIDERS: Referring Provider Internal Medicine Hematology & Oncology; Visit Provider Internal Medicine Hematology & Oncology
DX: D50.9 Iron deficiency anemia, unspecified (principal); C64.2 Malignant neoplasm of left kidney, except renal pelvis; K72.10 Chronic hepatic failure without coma
CPT/HCPCS: 36415; 85025; 86850; 86900; 86901; 86921; 86922

== ENCOUNTER 2025-04-17 13:07 | Emergency (ER) | payer MEDICAID, SELFPAY ==
[2025-04-17] VITALS (11 sets, daily range): BP systolic 96–131; BP diastolic 62–89; PULSE 77–108; RESP 13–24; TEMP 36.6–37; O2SAT 96–100; BMI 28.1
--- NOTE | 2025-04-17 14:06 | PD.EDRECHK ---
ED Recheck Abnl Lab Rx-RME/HPI General Chief Complaint: General Adult/Misc Complain Stated Complaint: sent by [facility] for blood transfusion,blood ordered Time Seen by Provider: 04/17/25 13:33 Source: patient Arrival date/time: 04/17/25 13:07 44-year-old female with a history of cirrhosis and GI bleeds was sent to the emergency room by the cancer treatment center for hemoglobin of 6.6. Mode of arrival: ambulatory Limitations: no limitations Related Data Previous Rx's ?Medication ?Instructions ?Recorded pantoprazole 40 mg tablet,delayed 40 mg PO QDAY #14 tabs 08/19/24 release Allergies Allergy/AdvReac Type Severity Reaction Status Date / Time amoxicillin Allergy Severe Hives Verified 04/17/25 13:09 Penicillins Allergy Severe Hives Verified 04/17/25 13:09 Review of Systems Review of Systems Systems Reviewed: All systems reviewed, normal except as documented Constitutional Constitutional: Reports system reviewed and no additional complaints, except as documented, Denies fatigue, Denies fever(s), Denies headache(s) and Denies weakness Eyes Eyes: Reports system reviewed and no additional complaints, except as documented, Denies blurry vision and Denies change in vision ENT Ears, Nose, Mouth, and Throat: Reports system reviewed and no additional complaints, except as documented, Denies otalgia, Denies headache(s), Denies nasal congestion, Denies throat swelling and Denies vertigo Cardiovascular Cardiovascular: Reports system reviewed and no additional complaints, except as documented, Denies chest pain, Denies dyspnea and Denies dyspnea on exertion Respiratory Respiratory: Reports system reviewed and no additional complaints, except as documented, Denies chest congestion, Denies cough, Denies dyspnea, Denies dyspnea on exertion and Denies wheezing Gastrointestinal Gastrointestinal: Reports system reviewed and no additional complaints, except as documented, Denies abdominal pain, Denies cramping, Denies nausea and Denies vomiting Genitourinary Genitourinary: Reports system reviewed and no additional complaints, except as documented Musculoskeletal Musculoskeletal: Reports system reviewed and no additional complaints, except as documented and Denies back pain Integumentary/Breasts Skin/Breast: Reports system reviewed and no additional complaints, except as documented and Denies wounds Neurologic Neurologic: Reports system reviewed and no additional complaints, except as documented, Denies confusion, Denies headache(s), Denies lack of coordination, Denies vertigo and Denies weakness Psychiatric Psychiatric: Reports system reviewed and no additional complaints, except as documented, Denies anxiety, Denies confusion, Denies depression, Denies paranoia, Denies suicidal ideation and Denies tactile hallucinations Endocrine Endocrine: Reports system reviewed and no additional complaints, except as documented and Denies fatigue Hematologic/Lymphatic Hematologic/Lymphatic: Reports system reviewed and no additional complaints, except as documented and Denies lymphadenopathy Allergic/Immunologic Allergic/Immunologic: Reports system reviewed and no additional complaints, except as documented, Denies throat swelling, Denies urticaria and Denies wheezing ED Exam General Limitations: Present no limitations General appearance: Present alert and in no apparent distress Head Head exam: Present atraumatic Eye Eye exam: Present normal appearance, PERRL and EOMI ENT ENT exam: Present normal exam, normal oropharynx and mucous membranes moist Neck Neck exam: Present normal inspection, full ROM and trachea midline Chest Chest inspection: Present normal inspection and symmetric chest wall rise Respiratory Respiratory exam: Present normal lung sounds bilaterally Cardiovascular Cardiovascular exam: Present regular rate, normal rhythm and normal heart sounds Abdominal Exam Abdominal exam: Present soft and normal bowel sounds; Absent distention, tenderness or guarding Extremities Exam Extremities exam: Present normal inspection and full ROM Back Exam Back exam: Present normal inspection and full ROM Neurological Exam Neurological exam: Present alert, oriented X3 and CN II-XII intact Psychiatric Psychiatric exam: Present normal affect and normal mood Skin Skin exam: Present warm, dry, intact and normal color Course Quality Measures none Orders Category Date Time Status CBC Stat Lab 04/17/25 14:11 Completed CMP [Comprehensive Metabolic Panel] Stat Lab 04/17/25 14:11 Completed PT [Prothrombin Time with INR] Stat Lab 04/17/25 14:11 Completed PTT [Partial Thromboplastin Time] Stat Lab 04/17/25 14:11 Completed Type and Screen Stat Lab 04/17/25 14:11 Completed prbc [Red Blood Cells] Stat Lab 04/17/25 14:11 Completed Vital Signs Vital signs: Vital Signs Temperature 98.4 F 04/17/25 13:48 Pulse Rate 108 H 04/17/25 13:48 Respiratory Rate 20 04/17/25 13:48 Blood Pressure 131/87 H 04/17/25 13:48 Pulse Oximetry (%) 100 04/17/25 13:48 Oxygen Delivery Method Room Air 04/17/25 13:48 Recheck / Abnormal Lab / Rx MDM Narrative MDM Narrative:: 44-year-old female with a history of cirrhosis and GI bleeds was sent to the emergency room by the cancer [facility] center for hemoglobin of 6.6. Patient is hemodynamically stable and in no apparent distress Physical examination shows a soft nontender abdomen. The patient denies any blood in the stool hematuria or vomiting any blood. Patient states she is only here due to her low hemoglobin level because she was sent by the cancer treatment center. Patient states they recently found something in her kidney and she is getting worked up for possible kidney cancer. 2 units of packed red blood cells were given and the patient was discharged Patient was discharged and educated to follow-up with primary care provider in the next 24 to 48 hours and return to the emergency room for any evidence of worsening signs or symptoms Patient data External records reviewed:: [facility] previous records Clinical information provided by:: patient Social determinants that could affect healthcare access:: none Patient has the following chronic illnesses:: Cirrhosis, How is presenting disease/condition affected by chronic disease/condition?: caused by Evaluation data The following diagnostics were reviewed and interpreted by me:: lab results and radiology exam(s) Lab and/or radiology exams considered but not ordered:: Labs and radiology exams considered and ordered Interpretation Summary: N/A Medications / Prescriptions Medications or Prescriptions considered but not ordered:: Blood transfusion given Medication administrations:: Blood transfusion given Consultations Consultation(s) initiated? (list below): No Diagnosis Recheck Differential Diagnosis: other (Encounter for blood transfusion/low hemoglobin level) Most likely diagnosis given after review of the tests above:: Encounter for blood transfusion Admission Indicated Admission indicated?: not indicated Admission Request Was there a request for admission?: No Disposition Plan Disposition Plan: Discharge Discharge Attestation Discharge Attestation: The patient and all family members were given an opportunity to ask questions and understood the discharge instructions. Discharge instructions specifically effects, indications for sooner follow up or return to the emergency department, and the expected course of current diagnosis. Patient condition: Stable Discharge Plan Plan Patient Disposition: HOME (Self Care) Discharge Disposition comment: Stable Prescriptions/Referrals Prescriptions/Med Rec: No Action pantoprazole 40 mg tablet,delayed release (DR/EC) 40 mg PO QDAY Qty: 14 0RF Referrals: Norman Mcgraw PA-C [Primary Care Provider] - In 1 week Problem List Clinical Impression: Hemoglobin low, Anemia of chronic disease Patient/Caregiver Discharge Instructions Education Materials: Anemia Additional Instructions: Please follow-up with your primary care provider in the next 24 to 48 hours For any evidence of worsening signs or symptoms return the emergency room immediately Print Language: Angolan Stand Alone Forms: Christina Award Info., Patient Portal Info Letter PA/SKILLED NURSING PROFESSIONAL Supervising Physician PA/SKILLED NURSING PROFESSIONAL Supervising Physician: Dr. Cohen
[2025-04-17 14:30] LABS: Basophils # (Auto) 0.0 Thou/mm3 (0.0-0.2); Basophils % (Auto) 1 % (0-2.5); Eosinophils # (Auto) 0.1 Thou/mm3 (0.0-0.5); Eosinophils % (Auto) 4 % (0-10); Hematocrit 23.5 % (36.0-46.0); Immature Granulocytes Auto 0.01 Thou/mm3 (0.00-0.00); Lymphocytes # (Auto) 0.7 Thou/mm3 (1.0-4.8); Lymphocytes % (Auto) 19 % (10-50); Mean Corpuscular HGB Conc 28.1 g/dl (31.0-37.0); Mean Corpuscular Hemoglobin 19.2 pg (25.0-35.0); Mean Corpuscular Volume 68 fL (80-100); Monocytes # (Auto) 0.3 Thou/mm3 (0.0-0.8); Monocytes % (Auto) 9 % (0-12); Neutrophils # (Auto) 2.4 Thou/mm3 (1.8-7.7); Neutrophils % (Auto) 68 % (37-80); Nucleated Red Blood Cell # 0.00 Thou/mm3 (0.00-0.00); Nucleated Red Blood Cell % 0 /100 WBC (0); Platelet Count 90 Thou/mm3 (140-440); RDW Standard Deviation 42.3 fL (36.4-46.3); Red Blood Count 3.44 Miln/mm3 (4.00-5.20); White Blood Count 3.6 Thou/mm3 (3.6-11.0)
[2025-04-17 14:39] LABS: Hemoglobin 6.6 g/dL (12.0-16.0)
[2025-04-17 14:48] LABS: Alanine Aminotransferase 19 U/L (10-49); Albumin, Serum 3.9 gm/dL (3.5-5.0); Albumin/Globulin Ratio 1.2 (1.2-2.2); Alkaline Phosphatase 83 U/L (46-116); Anion Gap 9 (7-16); Aspartate Amino Transferase 28 U/L (0-34); BUN/Creatinine Ratio 14 Ratio (12-20); Bilirubin,Total 0.7 mg/dL (0.3-1.2); Blood Urea Nitrogen 11 mg/dL (9-23); Calcium 8.9 mg/dL (8.3-10.6); Calcium (Corrected) 9.0 mg/dL (8.5-10.1); Carbon Dioxide 24.1 mMol/L (20.0-31.0); Chloride 106 mMol/L (98-107); Creatinine (Component) 0.8 mg/dL (0.6-1.3); Estimated Creatinine Clearance 89.6 mL/min (>60); Globulin 3.3 gm/dL (2.3-3.5); Glucose 107 mg/dL (74-106); Osmolality,Calculated 276 (275-295); Potassium 3.6 mMol/L (3.4-5.1); Sodium 139 mMol/L (136-145); Total Protein 7.2 gm/dL (5.7-8.2); eGFR > 60 See Note
[2025-04-17 14:52] LABS: INR 1.2 (0.9-1.3); Partial Thromboplastin Time 29.1 Seconds (22.0-36.0); Prothrombin Time 13.1 Seconds (9.0-12.2)
--- NOTE | 2025-04-17 20:47 | PC.NURSE ---
pt denies sob or chest pain after blood transfusion started. vital signs stable. rn at bedside
[2025-04-18 00:02] VITALS: BP 116/86; PULSE 88; RESP 20; TEMP 36.8; O2SAT 98
[2025-04-18 00:17] VITALS: BP 121/93; PULSE 94; RESP 20; TEMP 36.8; O2SAT 100
[2025-04-18 01:24] VITALS: BP 124/85; PULSE 77; RESP 13; TEMP 36.7; O2SAT 97
== END 2025-04-18 01:38 | disposition home or self-care (01) ==
PROVIDERS: Nurse Practitioner Family; Emergency Provider Family Medicine
DX: K74.60 Unspecified cirrhosis of liver (principal); D63.8 Anemia in other chronic diseases classified elsewhere
CPT/HCPCS: 36415; 36430; 80053; 85025; 85610; 85730; 86850; 86900; 86901; 86902; 86921; 86922; 99283; P9016

== ENCOUNTER → 2025-05-31 | Outpatient (CLI) | payer MEDICAID, SELFPAY ==
[2025-05-30 14:45] LABS: HCG Qualitative,Urine Negative
--- NOTE | 2025-05-31 08:04 | XR_ITS ---
Examination: MRI abdomen with intravenous contrast. MRI abdomen without intravenous contrast. Date and time of exam: May 31, 2025 0832 hours, comparison August 07, 2024, MRCP August 16, 2024 INDICATIONS: Anemia unspecified, iron deficiency anemia unspecified, heterogeneous enhancement involving surrounding liver on MRI abdomen August 17, 2024 Technique: Multiple axial, sagittal and coronal sections of the abdomen obtained. Transverse images, TR 6020, TE 107. T1 weighted transverse images, TR 582, TE 9.5. T2-weighted sagittal images, TR 4000, TE 105. T2-weighted sagittal images, TR 4000, TE 5. Coronal images, TR 4210, TE 107. Axial and coronal images are obtained post 20 cc intravenous injection, gadolinium. Findings: Cirrhosis, liver nodular in contour Prominent splenomegaly Distended gallbladder but no gallstones or common hepatic common bile duct stones Postcontrast images demonstrate heterogeneous signal throughout the liver although discrete enhancing liver lesions not depicted No pancreatic mass No hydronephrosis Aorta normal size No abdominal lymphadenopathy IMPRESSION: Cirrhosis Distended gallbladder Negative for cholelithiasis, negative for common bile duct stone Postcontrast images demonstrate heterogeneous signal throughout the liver although discrete enhancing liver lesions are not identified
--- NOTE | 2025-05-31 08:05 | XR_ITS ---
Examination: MRI pelvis with intravenous contrast. MRI pelvis without intravenous contrast. Date and time of exam: May 31, 2025 0832 hours INDICATIONS: Diagnosis anemia unspecified deficiency anemia unspecified Technique: Multiple axial, sagittal and coronal sections of the pelvis 20 obtained. Transverse images, TR 6020, TE 107. T1 weighted transverse images, TR 582, TE 9.5. T2-weighted sagittal images, TR 4000, TE 105. T2-weighted sagittal images, TR 4000, TE 5. Coronal images, TR 4210, TE 107. Axial and coronal images are obtained post 20 cc intravenous injection, gadolinium. Findings: No common iliac and external iliac internal iliac or common femoral lymphadenopathy. Anteverted uterus with mildly enlarged fundus Endometrial stripe measures 14 mm Postcontrast images demonstrate 12 mm uterine fundal area of fibroid degeneration Ovaries are not enlarged, right ovary 3.2 cm left ovary 2.8 cm, bilateral subcentimeter follicular cyst No free fluid in the pelvis Homogeneous osseous signal No solid pelvic mass IMPRESSION: 12 x 10 mm uterine area fundal fibroid degeneration Small bilateral ovarian follicular cysts No pelvic lymphadenopathy
== END | disposition home or self-care (01) ==
LOC: SMRI 07:39
PROVIDERS: PCP Family Medicine; Referring Provider Internal Medicine Hematology & Oncology; Visit Provider Internal Medicine Hematology & Oncology
DX: K74.60 Unspecified cirrhosis of liver (principal); K82.8 Other specified diseases of gallbladder; D25.9 Leiomyoma of uterus, unspecified; N83.02 Follicular cyst of left ovary; N83.01 Follicular cyst of right ovary; Z32.00 Encounter for pregnancy test, result unknown
CPT/HCPCS: 72197; 74183; 81025; A9577

== ENCOUNTER → 2025-06-08 | Outpatient (CLI) | payer MEDICAID, SELFPAY ==
--- NOTE | 2025-06-08 16:00 | XR_ITS ---
Examination: MRI lumbar spine without contrast Date and time of exam: June 08, 2025, 1629 hrs. Indications: Low back pain 20 years radiating down the left leg Technique: Multiple MRI axial and sagittal sections lumbar spine. Sagittal T2-weighted images, TR 3500, TE 118 T1 weighted transverse sections, TR 688 T8.5, T2-weighted sagittal sections T1 weighted sagittal sections TR 621, TE 30 T2 axial sections, TR 4, 190, TE 84. Findings: Adequate alignment lumbar vertebral bodies on the lateral view No lumbar fracture Moderate disc narrowing L4-L5, L5-S1 Normal marrow signal lumbar vertebral bodies No spondylolisthesis L5-S1 9 mm partially extruded central lumbar disc bulge indenting the ventral margin thecal sac L4-L5 7 mm left paracentral disc bulge displacing the left L5 nerve root and producing mild left L4 ganglionic compression L3-L4 4 mm central lumbar disc bulge Impression: L5-S1 9 mm partially extruded central lumbar disc bulge L4-L5 7 mm left paracentral disc bulge displacing the left L5 nerve root and producing mild left L4 ganglionic compression L3-L4 4 mm central lumbar disc bulge
== END | disposition home or self-care (01) ==
LOC: SMRI 15:54
PROVIDERS: PCP Chiropractor; Referring Provider Chiropractor; Visit Provider Chiropractor
DX: M51.27 Other intervertebral disc displacement, lumbosacral region (principal); G95.20 Unspecified cord compression; M51.360 Other intervertebral disc degeneration, lumbar region with discogenic back pain only; M51.370 Other intervertebral disc degeneration, lumbosacral region with discogenic back pain only
CPT/HCPCS: 72148

== ENCOUNTER 2025-07-31 09:20 | Outpatient (RCR) | payer MEDICAID, SELFPAY ==
--- NOTE | 2025-07-31 10:51 | CTCFLWUP_ITS ---
Patient: DONNA DAVILA : 1980 Page 3 of 5 FOLLOW UP NOTE DATE OF SERVICE: 07/31/2025 NAME: DONNA DAVILA ACCOUNT: [id number] : 1980 AGE: 44 INTERVAL HISTORY: Patient is here to follow-up on her kidney cancer and liver cirrhosis. Patient has seen clipper operator. Yet to see his urology. Patient had imaging done MRI abdomen and pelvis unfortunately radiologist did not comment on the kidneys so we cannot say if Ms. Davila have residual renal cancer or not. Patient had undergone ablative therapy for her kidneys .. ONCOLOGY HISTORY:?[facility] Hx? DIAGNOSIS: Iron deficiency anemia, unspecified [ICD10] D50.9 DATE OF DIAGNOSIS: 06/18/2022 STAGE/TNM: Kidney left lower posterior mass suspicious for renal cell cancer clear-cell type Ciaran nuclear grade 1 TREATMENT HISTORY: Care?Plan Start?Date Cycle Day Intent VENOfer?200mg?IV?wkly?for?10?weeks 04/06/2022 1 70 Palliative HISTORY OF PRESENT ILLNESS: 44-year-old female is here to follow-up with recurrence of renal mass. Patient is a chronic alcohol user and have underlying cirrhosis as well as esophageal varices. Patient frequently cries during this visit. Patient was seen in [place] October 30, 2021 patient was seen at [facility] in [place], secondary to abdominal pain. Patient states, she experienced abdominal pain and bloody stools for about 6 months prior to seeking medical attention.she had CT of the abdomen which showed cirrhosis of the liver with abdominal ascites, splenomegaly, and a solid mass on the left kidney that measured 20 x 19 mm. She also received 3 units of PRBC while and [facility] emergency department. Patient states, she was then transferred to [facility] secondary to liver cirrhosis diagnosishe received MRI of the abdomen, paracenteses, colonoscopy which showed internal hemorrhoids and EGD which was normal. Patient underwent ablation of the renal mass. 08/17/2024 MRI of the liver very abnormal heterogeneous enhancement involving the cirrhotic liver. Solid mass is confirmed left lower pole left kidney 27 x 26 mm 08/16/2024 CT scan shows cirrhosis liver is replaced by multiple tiny low- density lesions recommend MRI. 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 docusate sodium - 250 mg 1 Capsule Daily 2. ferrous sulfate - 325 mg (65 mg iron) 1 As directed 3. gabapentin - 100 mg 1 Capsule Twice a Day 4. omeprazole - 40 mg 1 Capsule Daily 5. sertraline - 100 mg 1 tab Daily 6. Zepbound - 5 mg/0.5 mL 1 As directed?Palabra Meds? Medications Last Reconciled by Kanwal Price MD on 07/31/2025 ALLERGIES: Penicillins REVIEW OF SYSTEMS: A complete 14-point review of systems was performed and is negative except as noted in interval history. PHYSICAL EXAMINATION:?[facility] PE? VITAL SIGNS: Temperature?98.5, B/P?155/113, Oxygen?Saturation?100% Weight?166?lbs PAIN: 0 - No pain ECOG Performance Status: 0 - Asymptomatic and fully active GENERAL APPEARANCE: Appears well, in no apparent distress, appropriately interactive. HEENT: Normocephalic, no temporal wasting, icteric , no lesions, neck normal range of motion. CARDIOVASCULAR: Not assessed. PULMONARY: Normal respiratory effort, no respiratory distress or use of accessory muscles, speaking in full sentences, no tachypnea. EXTREMITIES: No pedal edema or cyanosis. SKIN: Normal skin appearance. NEUROLOGIC: Alert and oriented x4. PSHYCHIATRIC: Patient frequently cries and avoids eye contact LABORATORY DATA: I have personally reviewed and interpreted each of the patient?s relevant lab tests, abnormal findings are below: Date 08/19/24 04/17/25 ??WHITE?BLOOD?COUNT?(Thou/mm3) ? 3.6 3.6 ??RED?BLOOD?COUNT?(Miln/mm3) ? 3.44?L 3.44?L ??HEMOGLOBIN?(gm/dl) ? 6.6?LL 6.6?LL ??HEMATOCRIT?(%) ? 23.5?L 23.5?L ??PLATELET?COUNT?(Thou/mm3) ? 86?L 90?L ??NEUTROPHILS?%,?AUTO?(%) ? 71 68 ??LYMPH?%,?AUTO?(%) ? 19 19 ??NEUTROPHILS,?AUTO?(Thou/mm3) ? 2.5 2.4 ??GLUCOSE,RANDOM?(mg/dL) 87 ? 107?H ??BLOOD?UREA?NITROGEN?(mg/dL) 8?L ? 11 ??CREATININE?(mg/dL) 0.70 ? 0.80 ??SODIUM?(mmol/L) 135?L ? 139 ??POTASSIUM?(mmol/L) 4.4 ? 3.6 ??CHLORIDE?(mmol/L) 107 ? 106 ??CrCl?(CandG)?(ml/min) 111.85 ? 91.56 ??AST/SGOT?(Unit/L) 101?H ? 28 ??ALT/SGPT?(Unit/L) 99?H ? 19 ??ALKALINE?PHOSPHATASE?(Unit/L) 73 ? 83 ??BILIRUBIN,?TOTAL?(mg/dL) 1.0 ? 0.7 ??PROTEIN?TOTAL?(gm/dl) 6.6 ? 7.2 ??ALBUMIN,?SERUM?(gm/dl) 3.7 ? 3.9 ??GLOBULIN?(gm/dl) 2.9 ? 3.3 ??ALBUMIN/GLOBULIN?RATIO 1.3 ? 1.2 ??CALCIUM,?SERUM?(mg/dL) 8.4 ? 8.9 ??CALCIUM?SERUM?(CORRECTED)?(mg/dL) 8.6 ? 9.0 ASSESSMENT/PLAN:?Luis Mora Assessment/Plan? #1 renal mass Patient has recurrent renal mass MRI abdomen and pelvis was obtained and reviewed with Nancy Giovanni but do not reveal any mass on the left kidney Send message to Dr. Chapman to review the MRI and issue addendum Patient referred to [facility] urology #2 end-stage liver disease Patient is following with clipper operator at [place] Ordered alpha-fetoprotein ORDERS: Order # Description [id number] Comprehensive Metabolic Panel - 12 + CBC with Auto Diff + AFP [id number] Iron Panel + Hereditary Hemochromatosis DNA analysis [id number] MD Follow Up 4 Week [id number] RETURN TO CLINIC: I reviewed the diagnosis, prognosis, and recommended treatment/procedure options with the patient (and/or their legal regional sales representative), including the potential benefits, risks, side effects and alternative therapies. We also discussed the option of no treatment and the possibility of clinical trial participation, if applicable. All questions were addressed, and they demonstrated understanding. They provided informed consent to proceed with the proposed plan of care. BILLING AND COMPLIANCE: I reviewed external records from providers outside my specialty as summarized above. I spent a total of 50 minutes on this patient?s care on the day of their visit excluding time spent related to any billed procedures. This time includes time spent with the patient as well as time spent documenting in the medical record, reviewing patients records and tests, obtaining history, placing orders, communicating with other healthcare professionals, counseling the patient, family or caregiver, and/or care coordination for the diagnoses above. Electronically Signed by: Arnel Mora MD T: 10:48 AM CC: PCP: Dilcia Marie Referring: Dilcia Marie This document was completed utilizing speech recognition software. Grammatical errors, random word insertions, pronoun errors, and incomplete sentences are an occasional consequence of this system due to software limitations, ambient noise, and hardware issues. Any formal questions or concerns about the content, text or information contained within the body of this dictation should be directly addressed to the provider for clarification.
== END 2025-08-05 23:59 | disposition home or self-care (01) ==
LOC: SCTC 09:20
PROVIDERS: Referring Provider Chiropractor; Visit Provider Internal Medicine Hematology & Oncology
DX: N28.89 Other specified disorders of kidney and ureter (principal); K72.10 Chronic hepatic failure without coma; D50.9 Iron deficiency anemia, unspecified
CPT/HCPCS: 99212; G0463